=== PATIENT | male | born 1945 | race Caucasian/White ===

== ENCOUNTER → 2017-09-11 08:47 | Outpatient (CLI) | payer MEDICARE, SELFPAY ==
[2017-09-11 10:34] LABS: Hematocrit 37.1 % (40-54); Mean Corp Hgb Conc 32.3 g/gl (32-36); Mean Corpuscular Hgb 29.4 pg (27.0-32.0); Mean Corpuscular Volume 90.9 fL (80-94); Mean Platelet Vol. 12.9 fl (6.2-12.0); Platelet Count 175 K/mm3 (150-450); RBC Distribution Width SD 42.8 fl (35.1-43.9); Red Blood Count 4.08 M/mm3 (4.6-6.2); White Blood Count 5.8 K/mm3 (4.4-11.0)
[2017-09-11 10:36] LABS: Scan Indicated on CBC? Y/N NO
[2017-09-11 10:57] LABS: Anion Gap 9 (5-15); BUN 39 mg/dL (7-18); BUN/Creat Ratio 16.8 RATIO (10-20); Calcium,Total 10.4 mg/dL (8.5-10.1); Chloride 107 mmol/L (98-107); Cholesterol 191 mg/dL (200); Creatinine, Serum 2.32 mg/dL (0.70-1.30); EST Glomerular Filtration Rate 29 mL/min (>60); Est Glom Filt Rate - Afr Amer 36 mL/min (>60); Glucose 94 mg/dL (74-106); High Density Lipoprotein 56 mg/dL; Potassium 4.9 mmol/L (3.5-5.1); Sodium Level 142 mmol/L (136-145); Triglycerides 127 mg/dL; Very Low Density Lipoprotein 25 mg/dL (5-40)
[2017-09-12 09:42] LABS: Vitamin D,25 Hydroxy 83.9 ng/mL (29.95-100.01)
[2017-09-12 09:45] LABS: PTHIN 17.6 pg/mL (18.4-80.1)
== END ==
PROVIDERS: Family Provider Family Medicine; PCP Family Medicine; Visit Provider Family Medicine
DX: E55.9 Vitamin D deficiency, unspecified (principal); N18.2 Chronic kidney disease, stage 2 (mild); I12.9 Hypertensive chronic kidney disease with stage 1 through stage 4 chronic kidney disease, or unspecified chronic kidney disease
CPT/HCPCS: 36415; 80048; 80061; 82306; 83970; 84100; 85027

== ENCOUNTER → 2017-12-22 08:23 | Outpatient (CLI) | payer MEDICARE, SELFPAY ==
[2017-12-22 10:26] LABS: Anion Gap 8 (5-15); BUN 40 mg/dL (7-18); BUN/Creat Ratio 14.6 RATIO (10-20); Calcium,Total 10.3 mg/dL (8.5-10.1); Chloride 105 mmol/L (98-107); Creatinine, Serum 2.74 mg/dL (0.70-1.30); EST Glomerular Filtration Rate 24 mL/min (>60); Est Glom Filt Rate - Afr Amer 29 mL/min (>60); Glucose 94 mg/dL (74-106); Potassium 4.4 mmol/L (3.5-5.1); Sodium Level 139 mmol/L (136-145)
[2017-12-22 10:44] LABS: PTHIN 23.1 pg/mL (18.4-80.1)
== END ==
PROVIDERS: Family Provider Family Medicine; PCP Family Medicine; Visit Provider Family Medicine
DX: N18.2 Chronic kidney disease, stage 2 (mild) (principal)
CPT/HCPCS: 36415; 80048; 83970

== ENCOUNTER → 2018-01-28 10:22 | Outpatient (CLI) | payer MEDICARE, SELFPAY ==
[2018-01-28 13:08] LABS: Protein, Urine (Random) 25.2 mg/dL (<11.9); Protein:Creat Ratio 176 mg/g CRE (0-200)
== END ==
PROVIDERS: Family Provider Family Medicine; PCP Family Medicine; Visit Provider Internal Medicine Nephrology
DX: N18.4 Chronic kidney disease, stage 4 (severe) (principal)
CPT/HCPCS: 82570; 84156

== ENCOUNTER → 2018-01-30 10:36 | Outpatient (CLI) | payer MEDICARE, SELFPAY | PROVIDERS: Family Provider Family Medicine; PCP Family Medicine; Visit Provider Internal Medicine Nephrology | DX: N18.4 Chronic kidney disease, stage 4 (severe) (principal) | CPT/HCPCS: 76770 ==

== ENCOUNTER → 2018-02-23 08:27 | Outpatient (CLI) | payer MEDICARE, SELFPAY ==
[2018-02-23 10:19] LABS: Hematocrit 34.7 % (40-54); Hemoglobin 11.3 g/dl (13.0-16.5); Mean Corp Hgb Conc 32.6 g/gl (32-36); Mean Corpuscular Hgb 29.8 pg (27.0-32.0); Mean Corpuscular Volume 91.6 fL (80-94); Mean Platelet Vol. 13.5 fl (6.2-12.0); Platelet Count 158 K/mm3 (150-450); RBC Distribution Width CV 12.5 % (11.6-14.6); RBC Distribution Width SD 40.3 fl (35.1-43.9); Red Blood Count 3.79 M/mm3 (4.6-6.2)
[2018-02-23 10:24] LABS: Scan Indicated on CBC? Y/N NO
[2018-02-23 10:36] LABS: Albumin, Serum 3.5 g/dL (3.2-5.0); BUN 35 mg/dL (7-18); BUN/Creat Ratio 14.6 RATIO (10-20); Calcium,Total 9.5 mg/dL (8.5-10.1); Chloride 103 mmol/L (98-107); Creatinine, Serum 2.39 mg/dL (0.70-1.30); EST Glomerular Filtration Rate 28 mL/min (>60); Est Glom Filt Rate - Afr Amer 34 mL/min (>60); Glucose 92 mg/dL (74-106); Potassium 3.9 mmol/L (3.5-5.1); Sodium Level 138 mmol/L (136-145)
== END ==
PROVIDERS: Family Provider Family Medicine; PCP Family Medicine; Visit Provider Internal Medicine Nephrology
DX: N18.4 Chronic kidney disease, stage 4 (severe) (principal)
CPT/HCPCS: 36415; 80069; 85027

== ENCOUNTER → 2018-06-23 09:32 | Outpatient (CLI) | payer MEDICARE, SELFPAY ==
[2018-06-23 12:31] LABS: Hematocrit 36.9 % (40-54); Hemoglobin 11.7 g/dl (13.0-16.5); Mean Corp Hgb Conc 31.7 g/gl (32-36); Mean Corpuscular Hgb 28.3 pg (27.0-32.0); Mean Corpuscular Volume 89.1 fL (80-94); Platelet Count 186 K/mm3 (150-450); RBC Distribution Width CV 13.2 % (11.6-14.6); RBC Distribution Width SD 42.7 fl (35.1-43.9); Red Blood Count 4.14 M/mm3 (4.6-6.2); White Blood Count 5.9 K/mm3 (4.4-11.0)
[2018-06-23 12:32] LABS: Scan Indicated on CBC? Y/N NO
[2018-06-23 12:39] LABS: Anion Gap 10 (5-15); BUN 41 mg/dL (7-18); Calcium,Total 10.1 mg/dL (8.5-10.1); Chloride 106 mmol/L (98-107); Cholesterol 172 mg/dL (200); Creatinine, Serum 2.41 mg/dL (0.70-1.30); EST Glomerular Filtration Rate 28 mL/min (>60); Est Glom Filt Rate - Afr Amer 34 mL/min (>60); Glucose 86 mg/dL (74-106); High Density Lipoprotein 61 mg/dL; PSA,Total - Annual Screen 1.38 ng/mL (0.00-4.00); Potassium 3.9 mmol/L (3.5-5.1); Sodium Level 140 mmol/L (136-145); Triglycerides 105 mg/dL; Very Low Density Lipoprotein 21 mg/dL (5-40)
[2018-06-23 12:40] LABS: Vitamin D,25 Hydroxy 73.7 ng/mL (29.95-100.01)
--- OUTSIDE RECORDS SUMMARY | 2018-08-25 10:46 | XMS RPT_ITS ---
:1945 Author Organization OHIP Care Team Providers Name Role Phone Neil Phoenix Attending Unavailable Neil Phoenix Primary Care Unavailable Neil Phoenix Attending Unavailable [facility] Unavailable Neil Phoenix Attending Unavailable Neil Phoenix Primary Care Unavailable Reshma Wong Attending Unavailable Neil Phoenix Primary Care Unavailable Reshma Wong Attending [facility] Unavailable Reshma Wong Attending Unavailable [facility] Unavailable PROBLEMS PROBLEMS DATE TYPE CONDITION / CODE ATTENDING STATUS SOURCE 02/23/2018 Unknown N18.4 - Chronic Reshma Wong Active [place] kidney disease, [facility] stage [facility] (severe[facility] / N18.4(ICD-10) Repository PROCEDURES PROCEDURES No Procedure Records FoundRESULTS RESULTS CBC-COMPLETE BLOOD CNT Collected: 06/23/2018 Status: F Source: [place] NO DIFF 9:33 AM [facility] REPOSITORY TYPE CODE TESTS RESULT OUT OF RANGE REFERENCE UNITS LAB L100.1000 4.4-11.0 K/mm3 Normal WBC 5.9 LAB L100.1200 4.6-6.2 M/mm3 Low RBC 4.14 LAB L100.1300 13.0-16.5 g/dl Low HGB 11.7 LAB L100.1400 40-54 % Low HCT 36.9 LAB L100.1500 80-94 fL Normal MCV 89.1 LAB L100.1600 27.0-32.0 pg Normal MCH 28.3 LAB L100.1700 32-36 g/gl Low MCHC 31.7 LAB L100.1810 11.6-14.6 % Normal RDW CV 13.2 LAB L100.1820 35.1-43.9 fl Normal RDW SD 42.7 LAB L100.1900 150-450 K/mm3 Normal PLT 186 LAB L100.2000 6.2-12.0 fl High MPV 13.0 Performed By: #### L100.0500, L500.2500, L501.9910, L506.1000 #### [facility] [address] [place], [address] BASIC METABOLIC Collected: 06/23/2018 Status: F Source: [place] PROFILE (BMP) 9:33 AM [facility] REPOSITORY TYPE CODE TESTS RESULT OUT OF RANGE REFERENCE UNITS LAB L501.0100 74-106 mg/dL Normal GLU 86 Result Comment: Please note revised GLUCOSE reference range effective 2017. LAB L501.1000 7-18 mg/dL High BUN 41 LAB L501.1100 0.70-1.30 mg/dL High CREAT,SERUM 2.41 Result Comment: The validity of the calculated GFR AND GFRAA in patients over 70 years has not been determined. Clinical correlation is essential. LAB L501.1110 >60 mL/min Low EST GFR 28 Result Comment: Non- GFR Calc LAB L501.1115 >60 mL/min Low EST GFR - AA 34 Result Comment: GFR Calc LAB L501.1300 10-20 RATIO Normal BUN/CRE 17.0 LAB L501.2200 8.5-10.1 mg/dL CA Normal 10.1 LAB L501.5300 136-145 mmol/L NA Normal 140 LAB L501.5600 3.5-5.1 mmol/L K Normal 3.9 LAB L501.5900 98-107 mmol/L CL Normal 106 LAB L501.6100 21.0-32.0 mmol/L Normal CO2 24.0 LAB L501.6200 5-15 Normal GAP 10 Performed By: #### L100.0500, L500.2500, L501.9910, L506.1000 #### [facility] [address] [place], [address] PSA,TOTAL - ANNUAL Collected: 06/23/2018 Status: F Source: [place] SCREEN 9:33 AM [facility] REPOSITORY TYPE CODE TESTS RESULT OUT OF RANGE REFERENCE UNITS LAB L501.9910 0.00-4.00 ng/mL Normal PSA,TOT 1.38 SCREEN Result Comment: This test was performed using the TPSA assay method for the ADMETA chemistry system. Values obtained with different assay methods cannot be used interchangably. When changing PSA assays in the course of monitoring a patient, additional sequential testing should be carried out to confirm baseline values. Performed By: #### L100.0500, L500.2500, L501.9910, L506.1000 #### [facility] [address] [place], [address] VITAMIN D,25 HYDROXY Collected: 06/23/2018 Status: F Source: [place] 9:33 AM [facility] REPOSITORY TYPE CODE TESTS RESULT OUT OF RANGE REFERENCE UNITS LAB L506.1000 29.95-100.01 ng/mL Normal Vitamin D 73.7 25-OH Result Comment: Vitamin D 25(OH) Status Range Deficiency <20 ng/mL (50nmol/L) Insuffciency 20 - 30 ng/mL (50 - 75 nmol/L) Sufficiency 30 - 100 ng/mL (75 - 250 nmol/L) Toxicity >100 ng/mL (>250 nmol/L) Performed By: #### L100.0500, L500.2500, L501.9910, L506.1000 #### [facility] [address] [place], [address] LIPID PROFILE Collected: 06/23/2018 Status: F Source: [place] 9:33 AM [facility] REPOSITORY TYPE CODE TESTS RESULT OUT OF RANGE REFERENCE UNITS LAB L501.4900 200 mg/dL Normal CHOL 172 Result Comment: <200 mg/dL Desirable 200-240 mg/dL Borderline >240 mg/dL High Risk LAB L501.5000 mg/dL Normal TRIG 105 Result Comment: The drugs N-Acetylcysteine and Metamizole may falsely depress this assay. Serum Triglycerides Reference Interval Normal <150 mg/dL Borderline high 150 - 199 mg/dL High 200 - 499 mg/dL Very High > or = 500 mg/dL LAB L501.6400 mg/dL Normal HDL 61 Result Comment: The drugs N-Acetylcysteine and Metamizole may falsely depress this assay. Reference Range HDL <40 mg/dL Low HDL Cholesterol HDL >or= 60 mg/dL High HDL Cholesterol LAB L501.6500 0-130 mg/dL Normal LDL 90 LAB L501.6600 5-40 mg/dL Normal VLDL 21 Performed By: #### L500.4100 #### [facility] [address] [facility] [place], [place], [id number] CBC-COMPLETE BLOOD CNT Collected: 02/23/2018 Status: F Source: [place] NO DIFF 8:28 AM [facility] REPOSITORY TYPE CODE TESTS RESULT OUT OF RANGE REFERENCE UNITS LAB L100.1000 4.4-11.0 K/mm3 Normal WBC 8.0 LAB L100.1200 4.6-6.2 M/mm3 Low RBC 3.79 LAB L100.1300 13.0-16.5 g/dl Low HGB 11.3 LAB L100.1400 40-54 % Low HCT 34.7 LAB L100.1500 80-94 fL Normal MCV 91.6 LAB L100.1600 27.0-32.0 pg Normal MCH 29.8 LAB L100.1700 32-36 g/gl Normal MCHC 32.6 LAB L100.1810 11.6-14.6 % Normal RDW CV 12.5 LAB L100.1820 35.1-43.9 fl Normal RDW SD 40.3 LAB L100.1900 150-450 K/mm3 Normal PLT 158 LAB L100.2000 6.2-12.0 fl High MPV 13.5 Performed By: #### L100.0500 #### [facility] [address] [facility] [place], [place], [id number] RENAL PROFILE Collected: 02/23/2018 Status: F Source: [place] 8:28 AM [facility] REPOSITORY TYPE CODE TESTS RESULT OUT OF RANGE REFERENCE UNITS LAB L501.0100 74-106 mg/dL Normal GLU 92 Result Comment: Please note revised GLUCOSE reference range effective 2017. LAB L501.1000 7-18 mg/dL High BUN 35 LAB L501.1100 0.70-1.30 mg/dL High CREAT,SERUM 2.39 Result Comment: The validity of the calculated GFR AND GFRAA in patients over 70 years has not been determined. Clinical correlation is essential. LAB L501.1110 >60 mL/min Low EST GFR 28 Result Comment: Non- GFR Calc LAB L501.1115 >60 mL/min Low EST GFR - AA 34 Result Comment: GFR Calc LAB L501.1300 10-20 RATIO Normal BUN/CRE 14.6 LAB L501.1800 3.2-5.0 g/dL Normal ALB 3.5 LAB L501.2200 8.5-10.1 mg/dL CA Normal 9.5 LAB L501.2300 2.5-4.9 mg/dL Normal PHOS 3.0 LAB L501.5300 136-145 mmol/L NA Normal 138 LAB L501.5600 3.5-5.1 mmol/L K Normal 3.9 LAB L501.5900 98-107 mmol/L CL Normal 103 LAB L501.6100 21.0-32.0 mmol/L Normal CO2 27.0 Performed By: #### L500.3600 #### [facility] [address] [facility] [place], [address] KIDNEY AND BLADDER Observed: 01/30/2018 Status: F Source: [place] 10:40 AM [facility] REPOSITORY [facility] Imaging Services [address] [place] [address] Kidney and Bladder MR#: [id number] Acct: [id number] Name: LÓPEZ WASHINGTON Rep #: [id number] : 1945 M 72 From: John Paul Person MD PCP: Neil Phoenix MD Status: REG CLI Study: Kidney and Bladder Date of Exam: 01/30/18 Exam# [id number] Ordering Dr: Reshma Wong DO STUDY: RENAL ULTRASOUND - COMPLETE REASON FOR EXAM: Male, 72 years old. Chronic kidney disease, stage IV. TECHNIQUE: Ultrasound evaluation of the kidneys was performed with real-time and static bone-scale imaging. COMPARISON: Bilateral renal ultrasound July 24, 2015. FINDINGS: RIGHT KIDNEY: Normal location of the right kidney, which is normal in size. The right kidney measures 9.3 x 4.6 x 4.8 cm. There is increased cortical echogenicity of the right kidney, which can be associated with long-standing medical renal disease. The renal cortex measures 1.1 cm. An incompletely defined 1.5 x 1.2 x 1.2 cm hypoechoic, exophytic structure with posterior acoustic shadowing is again seen at the anterior mid to lower pole. 7 mm echogenicity consistent with a stone noted at the upper pole. A 5 mm hyperechogenicity with posterior acoustic shadowing projects in the anterior cortex of the midpole. There is no right hydronephrosis. DISTAL RIGHT URETER: There is non-visualization of the distal right ureter. There is no demonstrated right ureterovesical junction calculus. There is a visualized right ureteral jet. LEFT KIDNEY: Normal location of the left kidney, which is normal in size. The left kidney measures 10.2 x 4.6 x 4.1 cm. There is trace cortical echogenicity of the left kidney, which can be associated with long-standing medical renal disease. The renal cortex measures 0.8 cm. Four cortical cysts are identified. An exophytic cyst at the upper pole is 2.25 x 2.1 x 2.75 cm. A second cyst at the anterior upper to mid pole is 1.7 x 2.2 x 1.85 cm. A third, at the lateral lower pole, is 2.5 x 2.0 x 2.1 cm. A fourth hypoechoic subcapsular lesion at the anterolateral midpole is 8 x 10 x 7 mm. 5 mm hyperechogenicity consistent with a nonobstructing stone noted at the lower pole. There is no left hydronephrosis. DISTAL LEFT URETER: There is non-visualization of the distal left ureter. There is no demonstrated left ureterovesical junction calculus. There is a visualized left ureteral jet. BLADDER: The urinary bladder has a volume of 86.1 ml at the time of scanning. There is a normal 3 mm wall thickness of the distended urinary bladder. There is no demonstrated mass within the urinary bladder. There are no demonstrated bladder calculi. US/Kidney and Bladder IMPRESSION: 1. Bilateral nonobstructing renal stones noted. No hydronephrosis. 2. Stable bilateral renal cortical cysts, as described. A few of the cysts on the left are better visualized today. 3. Increased renal cortical echogenicity, which could reflect change of long-standing medical renal disease. 4. The urinary bladder is unremarkable. Electronically Signed: Jorge Person MD at 16:09 EDT , Service support , CC: Reshma Wong DO; Neil Phoenix MD Historiographer: Signed PROTEIN+CREATININE Collected: Status: F Source: [place] RATIO,URINE 01/28/2018 10:23 AM [facility] REPOSITORY TYPE CODE TESTS RESULT OUT OF RANGE REFERENCE UNITS LAB L501.1200 NO RANGE EST. mg/dL Normal UR CREAT 143.00 LAB L501.1930 <11.9 mg/dL High 25.2 PROTEIN,UR.R AN. LAB L501.1940 0-200 mg/g CRE Normal PROT:CRE 176 RATIO Performed By: #### L501.0900 #### [facility] [address] [place], [address] BASIC METABOLIC Collected: 12/22/2017 Status: F Source: [place] PROFILE (BMP) 8:25 AM [facility] REPOSITORY Order Comment: Order Date: 09/18/17 Order Info: 0667-1 - BMP TYPE CODE TESTS RESULT OUT OF RANGE REFERENCE UNITS LAB L501.0100 74-106 mg/dL Normal GLU 94 Result Comment: Please note revised GLUCOSE reference range effective 2017. LAB L501.1000 7-18 mg/dL High BUN 40 LAB L501.1100 0.70-1.30 mg/dL High CREAT,SERUM 2.74 Result Comment: The validity of the calculated GFR AND GFRAA in patients over 70 years has not been determined. Clinical correlation is essential. LAB L501.1110 >60 mL/min Low EST GFR 24 Result Comment: Non- GFR Calc LAB L501.1115 >60 mL/min Low EST GFR - AA 29 Result Comment: GFR Calc LAB L501.1300 10-20 RATIO Normal BUN/CRE 14.6 LAB L501.2200 8.5-10.1 mg/dL High CA 10.3 LAB L501.5300 136-145 mmol/L NA Normal 139 LAB L501.5600 3.5-5.1 mmol/L K Normal 4.4 LAB L501.5900 98-107 mmol/L CL Normal 105 LAB L501.6100 21.0-32.0 mmol/L Normal CO2 26.0 LAB L501.6200 5-15 Normal GAP 8 Performed By: #### L500.2500, L509.1000 #### [facility] [address] [facility] [place], [place], [address] PTHIN Collected: 12/22/2017 Status: F Source: [place] 8:25 AM [facility] REPOSITORY Order Comment: Order Date: 09/18/17 Order Info: 0565-1 - PTHIN TYPE CODE TESTS RESULT OUT OF RANGE REFERENCE UNITS LAB L509.1000 18.4-80.1 pg/mL Normal PTHIN 23.1 Performed By: #### L500.2500, L509.1000 #### [facility] [address] [facility] [place], [address] CBC-COMPLETE BLOOD CNT Collected: 09/11/2017 Status: F Source: [place] NO DIFF 8:48 AM [facility] REPOSITORY Order Comment: Order Date: 06/19/17 Order Info: 66977-8 - CBC TYPE CODE TESTS RESULT OUT OF RANGE REFERENCE UNITS LAB L100.1000 4.4-11.0 K/mm3 Normal WBC 5.8 LAB L100.1200 4.6-6.2 M/mm3 Low RBC 4.08 LAB L100.1300 13.0-16.5 g/dl Low HGB 12.0 LAB L100.1400 40-54 % Low HCT 37.1 LAB L100.1500 80-94 fL Normal MCV 90.9 LAB L100.1600 27.0-32.0 pg Normal MCH 29.4 LAB L100.1700 32-36 g/gl Normal MCHC 32.3 LAB L100.1810 11.6-14.6 % Normal RDW CV 13.0 LAB L100.1820 35.1-43.9 fl Normal RDW SD 42.8 LAB L100.1900 150-450 K/mm3 Normal PLT 175 LAB L100.2000 6.2-12.0 fl High MPV 12.9 Performed By: #### L100.0500, L500.2500, L500.4100, L501.2300, L506.1000, L509.1000 #### [facility] [address] [place], [address] BASIC METABOLIC Collected: 09/11/2017 Status: F Source: [place] PROFILE ([facility] 8:48 AM [facility] REPOSITORY Order Comment: Order Date: 06/19/17 Order Info: 0667-1 - BMP Order Info: [id number] - LIPID Order Info: 2777-1 - PHOS TYPE CODE TESTS RESULT OUT OF RANGE REFERENCE UNITS LAB L501.0100 74-106 mg/dL Normal GLU 94 Result Comment: Please note revised GLUCOSE reference range effective 2017. LAB L501.1000 7-18 mg/dL High BUN 39 LAB L501.1100 0.70-1.30 mg/dL High CREAT,SERUM 2.32 Result Comment: The validity of the calculated GFR AND GFRAA in patients over 70 years has not been determined. Clinical correlation is essential. LAB L501.1110 >60 mL/min Low EST GFR 29 Result Comment: Non- GFR Calc LAB L501.1115 >60 mL/min Low EST GFR - AA 36 Result Comment: GFR Calc LAB L501.1300 10-20 RATIO Normal BUN/CRE 16.8 LAB L501.2200 8.5-10.1 mg/dL High CA 10.4 LAB L501.5300 136-145 mmol/L NA Normal 142 LAB L501.5600 3.5-5.1 mmol/L K Normal 4.9 LAB L501.5900 98-107 mmol/L CL Normal 107 LAB L501.6100 21.0-32.0 mmol/L Normal CO2 26.0 LAB L501.6200 5-15 Normal GAP 9 Performed By: #### L100.0500, L500.2500, L500.4100, L501.2300, L506.1000, L509.1000 #### [facility] [address] [place], [place], [address] LIPID PROFILE Collected: 09/11/2017 Status: F Source: [place] 8:48 AM [facility] REPOSITORY Order Comment: Order Date: 06/19/17 Order Info: 0667-1 - BMP Order Info: [id number] - LIPID Order Info: 2777-1 - PHOS TYPE CODE TESTS RESULT OUT OF RANGE REFERENCE UNITS LAB L501.4900 200 mg/dL Normal CHOL 191 Result Comment: <200 mg/dL Desirable 200-240 mg/dL Borderline >240 mg/dL High Risk LAB L501.5000 mg/dL Normal TRIG 127 Result Comment: The drugs N-Acetylcysteine and Metamizole may falsely depress this assay. Serum Triglycerides Reference Interval Normal <150 mg/dL Borderline high 150 - 199 mg/dL High 200 - 499 mg/dL Very High > or = 500 mg/dL LAB L501.6400 mg/dL Normal HDL 56 Result Comment: The drugs N-Acetylcysteine and Metamizole may falsely depress this assay. Reference Range HDL <40 mg/dL Low HDL Cholesterol HDL >or= 60 mg/dL High HDL Cholesterol LAB L501.6500 0-130 mg/dL Normal LDL 110 LAB L501.6600 5-40 mg/dL Normal VLDL 25 Performed By: #### L100.0500, L500.2500, L500.4100, L501.2300, L506.1000, L509.1000 #### [facility] [address] [place], [place], [address] PHOSPHORUS Collected: 09/11/2017 Status: F Source: [place] 8:48 AM [facility] REPOSITORY Order Comment: Order Date: 06/19/17 Order Info: 0667-1 - BMP Order Info: [id number] - LIPID Order Info: 2777-1 - PHOS TYPE CODE TESTS RESULT OUT OF RANGE REFERENCE UNITS LAB L501.2300 2.5-4.9 mg/dL Normal PHOS 4.0 Performed By: #### L100.0500, L500.2500, L500.4100, L501.2300, L506.1000, L509.1000 #### [facility] [address] [place], [place], [address] VITAMIN D,25 HYDROXY Collected: 09/11/2017 Status: F Source: [place] 8:48 AM [facility] REPOSITORY Order Comment: Order Date: 06/19/17 Order Info: 19362-7 - VITD25 TYPE CODE TESTS RESULT OUT OF RANGE REFERENCE UNITS LAB L506.1000 29.95-100.01 ng/mL Normal Vitamin D 83.9 25-OH Result Comment: Vitamin D 25(OH) Status Range Deficiency <20 ng/mL (50nmol/L) Insuffciency 20 - 30 ng/mL (50 - 75 nmol/L) Sufficiency 30 - 100 ng/mL (75 - 250 nmol/L) Toxicity >100 ng/mL (>250 nmol/L) Performed By: #### L100.0500, L500.2500, L500.4100, L501.2300, L506.1000, L509.1000 #### [facility] [address] [place], [place], [address] PTHIN Collected: 09/11/2017 Status: F Source: [place] 8:48 AM [facility] REPOSITORY Order Comment: Order Date: 06/19/17 Order Info: 0565-1 - PTHIN TYPE CODE TESTS RESULT OUT OF RANGE REFERENCE UNITS LAB L509.1000 18.4-80.1 pg/mL Low PTHIN 17.6 Result Comment: Please Note: PTH INTACT METHOD AND REFERENCE RANGE CHANGE Effective 05/21/2017. Performed By: #### L100.0500, L500.2500, L500.4100, L501.2300, L506.1000, L509.1000 #### [facility] [address] [place], [place], [address] ALLERGIES ALLERGIES No Allergies Records FoundENCOUNTERS ENCOUNTERS ADMIT/DISCHARGE ACCOUNT ADMITTING ENCOUNTER LOCATION SOURCE NUMBER CLASS 06/23/2018 [id number] Ambulatory [place] 1 [facility] ing:MFPLAB Repository 02/23/2018 [id number] Ambulatory [place] 7 [facility] ing:LAB.FUTUR Repository E 01/30/2018 [id number] Ambulatory [place] 9 [facility] ing:US Repository 01/28/2018 [id number] Ambulatory [place] 9 [facility] ing:LABSPEC Repository 12/22/2017 [id number] Amb[place] 1 [facility] ing:MFPLAB Repository 09/11/2017 [id number] Amb[place] 9 [facility] ing:MFPLAB Repository PAYERS PAYERS ENCOUNTER GUARANTOR PAYER SUBSCRIBER SOURCE 06/23/2018 López Estrada [id number] Insurance:[place] BennettDOB: [facility] [id number] Repository [address]Ytm: 330) Number: [phone] () [id number] Date: [address] [address]OJ: 06/23/2018 Secondary NOT GIVENUNK [place] Insurance:SELF PAY [facility] Number: Effective Repository Date:2018-06-23 02/23/2018 López Estrada [id number] Insurance:[place] BennettDOB: [facility] [id number] [address] Repository [address]Tvm: 330) Number: [phone] () [id number] Date: [address] [address]SZ: 02/23/2018 Secondary NOT GIVENUNK [place] Insurance:SELF PAY [facility] Number: Effective Repository Date:2018-01-29 01/30/2018 López Blissy J [place] [id number] Insurance:[place] BennettDOB: [facility] [id number] Repository [address]Hng: (330) Number: [phone] () [id number] Date: [address] [address]PM: 01/30/2018 Secondary NOT GIVENUNK [place] Insurance:SELF PAY [facility] Number: Effective Repository Date:2018-01-28 01/28/2018 López Brannon Primary López Estrada [id number] Insurance:[place] BennettDOB: [facility] [id number] Repository [address]Bgl: (330) Number: [phone] () [id number] Date: [address] [address]JW: 01/28/2018 Secondary NOT GIVENUNK [place] Insurance:SELF PAY [facility] Number: Effective Repository Date:2018-01-28 12/22/2017 López Brannon Primary López Estrada [id number] Insurance:[place] BennettDOB: [facility] [id number] MED[place] Repository [address]Hbb: (330) Number: [phone] () [id number] Date: [address] [address]GR: 12/22/2017 Secondary NOT GIVENUNK [place] Insurance:SELF PAY [facility] Number: Effective Repository Date:2017-12-22 09/11/2017 López Brannon Primary López Estrada [id number] Insurance:[place] BennettDOB: [facility] [id number] Repository [address]Knh: 330) Number: [phone] () [id number] Date: FLORINDA STEWART [address], [place] [address]JA: 09/11/2017 Secondary NOT GIVENUNK [place] Insurance:SELF PAY [facility] Number: Effective Repository Date:2017-09-11
== END ==
PROVIDERS: Family Provider Family Medicine; PCP Family Medicine; Visit Provider Family Medicine
DX: E55.9 Vitamin D deficiency, unspecified (principal); N40.0 Benign prostatic hyperplasia without lower urinary tract symptoms; N18.2 Chronic kidney disease, stage 2 (mild); I12.9 Hypertensive chronic kidney disease with stage 1 through stage 4 chronic kidney disease, or unspecified chronic kidney disease; Z12.5 Encounter for screening for malignant neoplasm of prostate
CPT/HCPCS: 36415; 80048; 80061; 82306; 84153; 85027; G0103

== ENCOUNTER → 2018-07-06 09:41 | Outpatient (CLI) | payer MEDICARE, SELFPAY ==
[2018-07-06 12:49] LABS: Albumin, Serum 3.8 g/dL (3.2-5.0); BUN 37 mg/dL (7-18); BUN/Creat Ratio 15.2 RATIO (10-20); Calcium,Total 10.1 mg/dL (8.5-10.1); Chloride 106 mmol/L (98-107); Creatinine, Serum 2.43 mg/dL (0.70-1.30); EST Glomerular Filtration Rate 28 mL/min (>60); Est Glom Filt Rate - Afr Amer 34 mL/min (>60); Glucose 88 mg/dL (74-106); Potassium 4.1 mmol/L (3.5-5.1); Sodium Level 138 mmol/L (136-145)
== END ==
PROVIDERS: Family Provider Family Medicine; PCP Family Medicine; Visit Provider Internal Medicine Nephrology
DX: I12.9 Hypertensive chronic kidney disease with stage 1 through stage 4 chronic kidney disease, or unspecified chronic kidney disease (principal); N18.4 Chronic kidney disease, stage 4 (severe)
CPT/HCPCS: 36415; 80069

== ENCOUNTER → 2018-07-14 13:29 | Outpatient (CLI) | payer MEDICARE, SELFPAY ==
[2018-07-14 14:10] LABS: Protein, Urine (Random) 18.5 mg/dL (<11.9); Protein:Creat Ratio 301 mg/g CRE (0-200)
== END ==
PROVIDERS: Family Provider Family Medicine; PCP Family Medicine; Visit Provider Internal Medicine Nephrology
DX: I12.9 Hypertensive chronic kidney disease with stage 1 through stage 4 chronic kidney disease, or unspecified chronic kidney disease (principal); N18.4 Chronic kidney disease, stage 4 (severe)
CPT/HCPCS: 82570; 84156

== ENCOUNTER → 2018-09-22 08:26 | Outpatient (CLI) | payer MEDICARE, SELFPAY ==
[2018-09-22 10:32] LABS: Anion Gap 10 (5-15); BUN 35 mg/dL (7-18); BUN/Creat Ratio 14.2 RATIO (10-20); Calcium,Total 10.1 mg/dL (8.5-10.1); Chloride 104 mmol/L (98-107); Creatinine, Serum 2.46 mg/dL (0.70-1.30); EST Glomerular Filtration Rate 27 mL/min (>60); Est Glom Filt Rate - Afr Amer 33 mL/min (>60); Glucose 97 mg/dL (74-106); Potassium 4.1 mmol/L (3.5-5.1); Sodium Level 142 mmol/L (136-145)
== END ==
PROVIDERS: Family Provider Family Medicine; PCP Family Medicine; Referring Provider Family Medicine; Visit Provider Family Medicine
DX: I10 Essential (primary) hypertension (principal)
CPT/HCPCS: 36415; 80048

== ENCOUNTER → 2019-01-11 08:55 | Outpatient (CLI) | payer MEDICARE, SELFPAY ==
[2019-01-11 09:58] LABS: Hematocrit 36.5 % (40-54); Hemoglobin 11.9 g/dL (13.0-16.5); Mean Corp Hgb Conc 32.6 g/dL (32-36); Mean Corpuscular Hgb 29.3 pg (27.0-32.0); Mean Corpuscular Volume 89.9 fL (80-94); Mean Platelet Vol. 13.1 fl (6.2-12.0); Platelet Count 163 K/mm3 (150-450); RBC Distribution Width CV 12.7 % (11.6-14.6); RBC Distribution Width SD 41.9 fl (35.1-43.9); Red Blood Count 4.06 M/mm3 (4.6-6.2); White Blood Count 6.2 K/mm3 (4.4-11.0)
[2019-01-11 10:35] LABS: PTHIN 29.1 pg/mL (18.4-80.1)
[2019-01-11 10:39] LABS: Albumin, Serum 3.6 g/dL (3.2-5.0); BUN 36 mg/dL (7-18); BUN/Creat Ratio 15.5 RATIO (10-20); Calcium,Total 9.7 mg/dL (8.5-10.1); Chloride 106 mmol/L (98-107); Creatinine, Serum 2.33 mg/dL (0.70-1.30); EST Glomerular Filtration Rate 29 mL/min (>60); Est Glom Filt Rate - Afr Amer 35 mL/min (>60); Glucose 102 mg/dL (74-106); Phosphorus 3.7 mg/dL (2.5-4.9); Potassium 4.1 mmol/L (3.5-5.1); Sodium Level 140 mmol/L (136-145)
== END ==
PROVIDERS: Visit Provider Internal Medicine Nephrology
DX: N18.4 Chronic kidney disease, stage 4 (severe) (principal)
CPT/HCPCS: 36415; 80069; 83970; 85027

== ENCOUNTER → 2019-01-18 09:16 | Outpatient (CLI) | payer MEDICARE, SELFPAY ==
[2019-01-18 11:23] LABS: Anion Gap 7 (5-15); BUN 27 mg/dL (7-18); BUN/Creat Ratio 11.5 RATIO (10-20); Calcium,Total 9.8 mg/dL (8.5-10.1); Chloride 108 mmol/L (98-107); Creatinine, Serum 2.34 mg/dL (0.70-1.30); EST Glomerular Filtration Rate 29 mL/min (>60); Est Glom Filt Rate - Afr Amer 35 mL/min (>60); Glucose 93 mg/dL (74-106); Sodium Level 140 mmol/L (136-145)
[2019-01-18 11:29] LABS: Vitamin D,25 Hydroxy 63.2 ng/mL (29.95-100.01)
[2019-01-18 11:30] LABS: PTHIN 23.8 pg/mL (18.4-80.1)
== END ==
PROVIDERS: Family Provider Family Medicine; PCP Family Medicine; Referring Provider Family Medicine; Visit Provider Family Medicine
DX: N18.2 Chronic kidney disease, stage 2 (mild) (principal); E55.9 Vitamin D deficiency, unspecified
CPT/HCPCS: 36415; 80048; 82306; 83970

== ENCOUNTER → 2019-05-24 09:34 | Outpatient (CLI) | payer MEDICARE, SELFPAY ==
[2019-05-24 13:26] LABS: Anion Gap 6 (5-15); BUN 34 mg/dL (7-18); BUN/Creat Ratio 15.2 RATIO (10-20); Calcium,Total 9.9 mg/dL (8.5-10.1); Chloride 108 mmol/L (98-107); Creatinine, Serum 2.24 mg/dL (0.70-1.30); EST Glomerular Filtration Rate 31 mL/min (>60); Est Glom Filt Rate - Afr Amer 37 mL/min (>60); Glucose 100 mg/dL (74-106); Potassium 4.3 mmol/L (3.5-5.1); Sodium Level 141 mmol/L (136-145)
== END ==
PROVIDERS: Family Provider Family Medicine; PCP Family Medicine; Referring Provider Family Medicine; Visit Provider Family Medicine
DX: N18.2 Chronic kidney disease, stage 2 (mild) (principal)
CPT/HCPCS: 36415; 80048

== ENCOUNTER → 2019-07-19 08:48 | Outpatient (CLI) | payer MEDICARE, SELFPAY ==
[2019-07-19 10:19] LABS: Hematocrit 32.3 % (40-54); Hemoglobin 9.6 g/dL (13.0-16.5); Mean Corp Hgb Conc 29.7 g/dL (32-36); Mean Corpuscular Hgb 25.7 pg (27.0-32.0); Mean Corpuscular Volume 86.4 fL (80-94); Mean Platelet Vol. 12.9 fl (6.2-12.0); Platelet Count 183 K/mm3 (150-450); RBC Distribution Width CV 13.3 % (11.6-14.6); RBC Distribution Width SD 41.7 fl (35.1-43.9); Red Blood Count 3.74 M/mm3 (4.6-6.2); White Blood Count 5.1 K/mm3 (4.4-11.0)
[2019-07-19 10:25] LABS: Albumin, Serum 3.5 g/dL (3.2-5.0); BUN 32 mg/dL (7-18); BUN/Creat Ratio 13.9 RATIO (10-20); Calcium,Total 9.4 mg/dL (8.5-10.1); Chloride 107 mmol/L (98-107); Creatinine, Serum 2.31 mg/dL (0.70-1.30); EST Glomerular Filtration Rate 29 mL/min (>60); Est Glom Filt Rate - Afr Amer 36 mL/min (>60); Glucose 95 mg/dL (74-106); Phosphorus 3.6 mg/dL (2.5-4.9); Potassium 3.8 mmol/L (3.5-5.1); Sodium Level 139 mmol/L (136-145)
[2019-07-19 10:42] LABS: Protein, Urine (Random) 27.3 mg/dL (<11.9); Protein:Creat Ratio 354 mg/g CRE (0-200)
== END ==
PROVIDERS: PCP Family Medicine; Referring Provider Family Medicine; Visit Provider Internal Medicine Nephrology
DX: N18.4 Chronic kidney disease, stage 4 (severe) (principal)
CPT/HCPCS: 36415; 80069; 82570; 84156; 85027

== ENCOUNTER → 2019-10-06 09:27 | Outpatient (CLI) | payer MEDICARE, SELFPAY ==
[2019-10-06 12:23] LABS: Anion Gap 8 (5-15); BUN 38 mg/dL (7-18); BUN/Creat Ratio 15.9 RATIO (10-20); Calcium,Total 9.5 mg/dL (8.5-10.1); Chloride 103 mmol/L (98-107); Cholesterol 175 mg/dL (200); Creatinine, Serum 2.39 mg/dL (0.70-1.30); EST Glomerular Filtration Rate 28 mL/min (>60); Est Glom Filt Rate - Afr Amer 34 mL/min (>60); Glucose 89 mg/dL (74-106); High Density Lipoprotein 60 mg/dL; Potassium 3.7 mmol/L (3.5-5.1); Sodium Level 136 mmol/L (136-145); Triglycerides 104 mg/dL; Very Low Density Lipoprotein 21 mg/dL (5-40)
== END ==
PROVIDERS: PCP Family Medicine; Referring Provider Family Medicine; Visit Provider Family Medicine
DX: I10 Essential (primary) hypertension (principal)
CPT/HCPCS: 36415; 80048; 80061

== ENCOUNTER → 2019-10-18 12:54 | Outpatient (CLI) | payer MEDICARE, SELFPAY ==
--- NOTE | 2019-10-18 12:59 | ECHOD_ITS ---
Reason For Study: DYSPNEA Procedure This was a 2D Doppler, Color Flow transthoracic echocardiogram. Exam performed in department. Left Ventricle Normal LV size. Left ventricular systolic function is normal. The estimated ejection fraction is 60 %. No regional wall motion abnormalities noted. Right Ventricle Normal RV size. Normal systolic function. Atria Normal left atrium. Normal right atrium. Mitral Valve Normal mitral valve. Tricuspid Valve Normal tricuspid valve. Mild (1+) tricuspid valve insufficiency. Pulmonary artery systolic pressure is 30 mmHg. Aortic Valve Trisinus/trileaflet aortic valve. Great Vessels Normal aortic root. Pericardium/Pleural No pericardial effusion. MMode/2D Measurements & Calculations LVIDd: 4.6 cm IVSd: 1.2 cm Ao root diam: 3.2 cm LVIDs: 2.8 cm LVPWd: 1.0 cm RVDd: 2.8 cm FS: 38.6 % LAV(MOD-bp): 57.9 ml LA A4 area: 19.1 cm2 LA dimension(2D): 3.3 cm LAV(MOD-bp) Indexed: 31.8 ml/m2 LAV(MOD-sp2): 54.4 ml LAV(MOD-sp4): 57.5 ml RA A4 area: 12.7 cm2 Time Measurements MV dec time: 0.23 sec Doppler Measurements & Calculations MV E max nicolas: 67.8 cm/sec Lat Peak E' Nicolas: 8.7 cm/sec Med Peak E' Nicolas: 6.5 cm/sec MV A max nicolas: 83.1 cm/sec E/E' lat: 7.8 E/E' med: 10.5 MV E/A: 0.82 Ao V2 max: 129.3 cm/sec LV V1 max: 92.0 cm/sec PA V2 max: 90.8 cm/sec Ao max P.7 mmHg LV V1 max P.4 mmHg Ao V2 mean: 101.1 cm/sec Ao mean P.4 mmHg Ao V2 VTI: 26.7 cm TR max nicolas: 250.2 cm/sec TR max P.1 mmHg Interpretation Summary Normal LV size. Left ventricular systolic function is normal. The estimated ejection fraction is 60 %. Mild (1+) tricuspid valve insufficiency. Ordering Physician: Oswaldo Phoenix Referring Physician: Oswaldo Phoenix Performed By: Sofie Aguilar RDCS, RVT
== END ==
PROVIDERS: PCP Family Medicine; Referring Provider Family Medicine; Visit Provider Family Medicine
DX: R06.00 Dyspnea, unspecified (principal)
CPT/HCPCS: 93306

== ENCOUNTER → 2019-11-08 09:55 | Outpatient (CLI) | payer MEDICARE, SELFPAY ==
--- NOTE | 2019-11-08 09:58 | RAD_ITS ---
STUDY: X-RAY CHEST REASON FOR EXAM: Male, 74 years old. Dyspnea TECHNIQUE: PA and lateral views of the chest. COMPARISON: None. FINDINGS: There is elevation of the right hemidiaphragm. There is no demonstrated pleural abnormality. Normal size heart. Normal mediastinum and gerri. Normal visualized pulmonary arteries. There is atherosclerotic calcification of the aortic arch with tortuosity. There are diffuse degenerative changes of the visualized thoracic spine. Normal visualized ribs, clavicles, and shoulders. There is no demonstrated abnormality of the visualized soft tissue structures of the upper abdomen. RAD/Chest PA and Lateral IMPRESSION: Elevation of the right hemidiaphragm. The lungs are clear. Electronically Signed: Jack Gresham, at 10:07 EDT , Service support ,
== END ==
PROVIDERS: PCP Family Medicine; Referring Provider Family Medicine; Visit Provider Family Medicine
DX: R06.00 Dyspnea, unspecified (principal)
CPT/HCPCS: 71046

== ENCOUNTER → 2020-01-27 11:01 | Outpatient (CLI) | payer MEDICARE, SELFPAY ==
[2020-01-27 12:26] LABS: Absolute Lymphocyte Count 1.08 X10^3/uL (0.83-4.51); Absolute Neutrophil Count 3.6 X10^3/uL (2.0-7.7); Basophil# 0.04 X10^3/uL; Basophil% 0.7 % (0-1); Eosinophil# 0.12 X10^3/uL; Eosinophils% 2.1 % (0-5); Hematocrit 28.4 % (40-54); Hemoglobin 8.4 g/dL (13.0-16.5); Lymphocyte # 1.08 X10^3/ul (4.0); Mean Corp Hgb Conc 29.6 g/dL (32-36); Mean Corpuscular Hgb 24.8 pg (27.0-32.0); Mean Corpuscular Volume 83.8 fL (80-94); Mean Platelet Vol. 12.7 fl (6.2-12.0); Monocyte# 0.84 X10^3/uL; Monocyte% 14.8 % (0-10); NRBC Flagged by Analyzer 0 % (0-5); Neutrophil % 63.2 % (47-70); Platelet Count 220 K/mm3 (150-450); RBC Distribution Width CV 15.2 % (11.6-14.6); RBC Distribution Width SD 46.1 fl (35.1-43.9); Red Blood Count 3.39 M/mm3 (4.6-6.2); White Blood Count 5.7 K/mm3 (4.4-11.0)
[2020-01-27 13:10] LABS: Anion Gap 8 (5-15); BUN 35 mg/dL (7-18); BUN/Creat Ratio 13.9 RATIO (10-20); Calcium,Total 9.2 mg/dL (8.5-10.1); Chloride 105 mmol/L (98-107); Creatinine, Serum 2.51 mg/dL (0.70-1.30); EST Glomerular Filtration Rate 27 mL/min (>60); Est Glom Filt Rate - Afr Amer 32 mL/min (>60); Glucose 88 mg/dL (74-106); Iron 47 ug/dL (65-175); Potassium 3.9 mmol/L (3.5-5.1); Sodium Level 137 mmol/L (136-145)
[2020-01-27 13:12] LABS: PTHIN 57.1 pg/mL (18.4-80.1)
[2020-01-27 13:15] LABS: Vitamin D,25 Hydroxy 77.7 ng/mL
== END ==
PROVIDERS: PCP Family Medicine; Referring Provider Family Medicine; Visit Provider Family Medicine
DX: I10 Essential (primary) hypertension (principal); E55.9 Vitamin D deficiency, unspecified
CPT/HCPCS: 36415; 80048; 82306; 83540; 83970; 85025

== ENCOUNTER → 2020-04-17 09:13 | Outpatient (CLI) | payer MEDICARE, SELFPAY | LOC: MFPLAB 09:14 → LAB.FUTURE 09:17 | PROVIDERS: PCP Family Medicine; Visit Provider Family Medicine | DX: Z00.00 Encounter for general adult medical examination without abnormal findings (principal) ==

== ENCOUNTER → 2020-04-24 10:14 | Outpatient (CLI) | payer MEDICARE, SELFPAY ==
[2020-04-24 13:01] LABS: Platelet Count 204 K/mm3 (150-450); RET-HE 30.7 pg (30-35); Reticulocyte Count 1.16 % (0.5-1.5)
[2020-04-24 13:22] LABS: Anion Gap 7 (5-15); BUN 36 mg/dL (7-18); BUN/Creat Ratio 14.9 RATIO (10-20); Calcium,Total 9.8 mg/dL (8.5-10.1); Chloride 108 mmol/L (98-107); Cholesterol 182 mg/dL (200); Creatinine, Serum 2.42 mg/dL (0.70-1.30); EST Glomerular Filtration Rate 28 mL/min (>60); Est Glom Filt Rate - Afr Amer 34 mL/min (>60); Ferritin 14 ng/mL (26-388); Glucose 94 mg/dL (74-106); High Density Lipoprotein 58 mg/dL; Iron 32 ug/dL (65-175); Potassium 4.2 mmol/L (3.5-5.1); Sodium Level 140 mmol/L (136-145); Triglycerides 70 mg/dL; Very Low Density Lipoprotein 14 mg/dL (5-40)
== END ==
PROVIDERS: PCP Family Medicine; Visit Provider Family Medicine
DX: E55.9 Vitamin D deficiency, unspecified (principal); N18.2 Chronic kidney disease, stage 2 (mild); I12.9 Hypertensive chronic kidney disease with stage 1 through stage 4 chronic kidney disease, or unspecified chronic kidney disease; E78.00 Pure hypercholesterolemia, unspecified
CPT/HCPCS: 36415; 80048; 80061; 82306; 82728; 83540; 85045

== ENCOUNTER → 2020-07-24 10:01 | Outpatient (CLI) | payer MEDICARE, SELFPAY ==
[2020-07-24 12:46] LABS: Hematocrit 33.6 % (40-54); Hemoglobin 10.4 g/dL (13.0-16.5); Mean Corpuscular Hgb 27.7 pg (27.0-32.0); Mean Corpuscular Volume 89.4 fL (80-94); Mean Platelet Vol. 12.9 fl (6.2-12.0); Platelet Count 217 K/mm3 (150-450); RBC Distribution Width CV 12.9 % (11.6-14.6); RBC Distribution Width SD 42.4 fl (35.1-43.9); Red Blood Count 3.76 M/mm3 (4.6-6.2); White Blood Count 7.6 K/mm3 (4.4-11.0)
[2020-07-24 13:14] LABS: Vitamin B12 367 pg/mL (211-911); Vitamin D,25 Hydroxy 70.7 ng/mL
[2020-07-24 13:32] LABS: Anion Gap 8 (5-15); BUN 33 mg/dL (7-18); BUN/Creat Ratio 14.7 RATIO (10-20); Calcium,Total 9.5 mg/dL (8.5-10.1); Chloride 105 mmol/L (98-107); Creatinine, Serum 2.24 mg/dL (0.70-1.30); EST Glomerular Filtration Rate 30 mL/min (>60); Est Glom Filt Rate - Afr Amer 37 mL/min (>60); Ferritin 16 ng/mL (26-388); Glucose 96 mg/dL (74-106); Iron 173 ug/dL (65-175); Potassium 4.2 mmol/L (3.5-5.1); Sodium Level 138 mmol/L (136-145); Thyroid Stim Hormone (TSH) 3.01 uIU/mL (0.358-3.74); Uric Acid 5.7 mg/dL (3.5-7.2)
== END ==
PROVIDERS: PCP Family Medicine; Referring Provider Family Medicine; Visit Provider Family Medicine
DX: E55.9 Vitamin D deficiency, unspecified (principal); M25.532 Pain in left wrist; N18.2 Chronic kidney disease, stage 2 (mild); R53.83 Other fatigue
CPT/HCPCS: 36415; 80048; 82306; 82607; 82728; 83540; 84443; 84550; 85027

== ENCOUNTER → 2020-10-17 11:14 | Outpatient (CLI) | payer MEDICARE, SELFPAY ==
[2020-10-17 13:29] LABS: ALB/GLOB Ratio 0.8 RATIO (0.9-2.4); AST(SGOT) 15 U/L (15-37); Alanine Aminotransfer ALT/SGPT 15 U/L (16-61); Albumin, Serum 3.6 g/dL (3.2-5.0); Alkaline Phosphatase 27 U/L (45-117); Anion Gap 9 (5-15); BUN 33 mg/dL (7-18); BUN/Creat Ratio 12.1 RATIO (10-20); Calcium,Total 9.9 mg/dL (8.5-10.1); Chloride 104 mmol/L (98-107); Cholesterol 167 mg/dL (200); Creatinine, Serum 2.73 mg/dL (0.70-1.30); EST Glomerular Filtration Rate 24 mL/min (>60); Est Glom Filt Rate - Afr Amer 29 mL/min (>60); Globulin 4.3 g/dL (2.2-4.2); Glucose 85 mg/dL (74-106); High Density Lipoprotein 57 mg/dL; Potassium 4.2 mmol/L (3.5-5.1); Protein, Total 7.9 g/dL (6.4-8.2); Sodium Level 138 mmol/L (136-145); Triglycerides 93 mg/dL; Very Low Density Lipoprotein 19 mg/dL (5-40)
== END ==
PROVIDERS: PCP Family Medicine; Referring Provider Family Medicine; Visit Provider Family Medicine
DX: E78.00 Pure hypercholesterolemia, unspecified (principal)
CPT/HCPCS: 36415; 80053; 80061

== ENCOUNTER → 2021-02-01 10:20 | Outpatient (CLI) | payer MEDICARE, SELFPAY ==
[2021-02-01 12:11] LABS: Hematocrit 33.9 % (40-54); Hemoglobin 10.7 g/dL (13.0-16.5); Mean Corp Hgb Conc 31.6 g/dL (32-36); Mean Corpuscular Hgb 27.7 pg (27.0-32.0); Mean Corpuscular Volume 87.8 fL (80-94); Mean Platelet Vol. 12.8 fl (6.2-12.0); Platelet Count 217 K/mm3 (150-450); RBC Distribution Width CV 13.7 % (11.6-14.6); RBC Distribution Width SD 44.1 fl (35.1-43.9); Red Blood Count 3.86 M/mm3 (4.6-6.2); White Blood Count 6.8 K/mm3 (4.4-11.0)
[2021-02-01 12:24] LABS: Anion Gap 8 (5-15); BUN 35 mg/dL (7-18); BUN/Creat Ratio 13.8 RATIO (10-20); Calcium,Total 9.7 mg/dL (8.5-10.1); Chloride 104 mmol/L (98-107); Creatinine, Serum 2.54 mg/dL (0.70-1.30); EST Glomerular Filtration Rate 26 mL/min (>60); Est Glom Filt Rate - Afr Amer 32 mL/min (>60); Glucose 95 mg/dL (74-106); Iron 107 ug/dL (65-175); Phosphorus 4.1 mg/dL (2.5-4.9); Potassium 4.2 mmol/L (3.5-5.1); Sodium Level 137 mmol/L (136-145)
== END ==
PROVIDERS: PCP Family Medicine; Referring Provider Family Medicine; Visit Provider Family Medicine
DX: N18.30 Chronic kidney disease, stage 3 unspecified (principal)
CPT/HCPCS: 36415; 80048; 83540; 83970; 84100; 85027

== ENCOUNTER 2021-06-05 10:55 | Outpatient (CLI) | payer MEDICARE, SELFPAY ==
[2021-06-05 13:04] LABS: Anion Gap 11 (5-15); BUN 29 mg/dL (7-18); BUN/Creat Ratio 12.7 RATIO (10-20); Calcium,Total 9.9 mg/dL (8.5-10.1); Chloride 104 mmol/L (98-107); Creatinine, Serum 2.28 mg/dL (0.70-1.30); EST Glomerular Filtration Rate 30 mL/min (>60); Est Glom Filt Rate - Afr Amer 36 mL/min (>60); Glucose 94 mg/dL (74-106); Sodium Level 138 mmol/L (136-145)
== END 2021-06-05 23:59 | disposition short-term general hospital (02) ==
LOC: MFPLAB 10:56
PROVIDERS: PCP Family Medicine; Referring Provider Family Medicine; Visit Provider Family Medicine
DX: N18.30 Chronic kidney disease, stage 3 unspecified (principal)
CPT/HCPCS: 36415; 80048

== ENCOUNTER 2021-09-04 10:58 | Outpatient (CLI) | payer MEDICARE, SELFPAY ==
--- NOTE | 2021-09-04 11:02 | RAD_ITS ---
STUDY: X-RAY - LUMBAR SPINE REASON FOR EXAM: Male, 76 years old. Low back pain TECHNIQUE: 4 view(s) of the lumbar spine were obtained. COMPARISON: None FINDINGS: Normal lumbar lordosis. There is no substantial scoliosis. There is a normal alignment of the vertebrae. There is multilevel endplate spondylosis of the lumbar vertebrae. There is multi-level degenerative disc disease with multi-level disc space narrowing. There is no demonstrated fracture. There is atherosclerotic calcification of the abdominal aorta without a demonstrated aneurysm. Right-sided nephrolithiasis suspected RAD/L/S Spine Min 4 Views IMPRESSION: Degenerative changes of the spine, as detailed above. No acute findings Likely right nephrolithiasis Electronically Signed: Jorge Douglass MD at 11:36 EDT ,
[2021-09-04 12:05] LABS: Hematocrit 31.8 % (40-54); Hemoglobin 9.6 g/dL (13.0-16.5); Mean Corp Hgb Conc 30.2 g/dL (32-36); Mean Corpuscular Hgb 25.9 pg (27.0-32.0); Mean Corpuscular Volume 85.9 fL (80-94); Mean Platelet Vol. 12.5 fl (6.2-12.0); Platelet Count 275 K/mm3 (150-450); RBC Distribution Width CV 14.6 % (11.6-14.6); RBC Distribution Width SD 45.1 fl (35.1-43.9)
[2021-09-04 12:38] LABS: Vitamin D,25 Hydroxy 73.9 ng/mL
[2021-09-04 13:06] LABS: AST(SGOT) 17 U/L (15-37); Alanine Aminotransfer ALT/SGPT 14 U/L (16-61); Albumin, Serum 3.5 g/dL (3.2-5.0); Alkaline Phosphatase 24 U/L (45-117); Anion Gap 7 (5-15); BUN 37 mg/dL (7-18); Bilirubin, Direct 0.11 mg/dL (0.00-0.30); Calcium,Total 10.1 mg/dL (8.5-10.1); Chloride 106 mmol/L (98-107); Cholesterol 165 mg/dL (200); Creatinine, Serum 2.46 mg/dL (0.70-1.30); EST Glomerular Filtration Rate 27 mL/min (>60); Est Glom Filt Rate - Afr Amer 33 mL/min (>60); Globulin 5.2 g/dL (2.2-4.2); Glucose 103 mg/dL (74-106); High Density Lipoprotein 48 mg/dL; Potassium 4.1 mmol/L (3.5-5.1); Protein, Total 8.7 g/dL (6.4-8.2); Sodium Level 137 mmol/L (136-145); Triglycerides 123 mg/dL; Very Low Density Lipoprotein 25 mg/dL (5-40)
== END 2021-09-04 23:59 | disposition home or self-care (01) ==
LOC: MTLAB 11:00
PROVIDERS: PCP Family Medicine; Referring Provider Family Medicine; Visit Provider Family Medicine
DX: M54.9 Dorsalgia, unspecified (principal); N18.30 Chronic kidney disease, stage 3 unspecified; E78.00 Pure hypercholesterolemia, unspecified
CPT/HCPCS: 36415; 72110; 80048; 80061; 80076; 82306; 85027

== ENCOUNTER → 2021-12-05 | Outpatient (CLI) | payer MEDICARE, SELFPAY ==
[2021-12-05 15:23] LABS: Anion Gap 8 (5-15); BUN 33 mg/dL (7-18); BUN/Creat Ratio 13.6 RATIO (10-20); Calcium,Total 9.7 mg/dL (8.5-10.1); Chloride 106 mmol/L (98-107); Creatinine, Serum 2.43 mg/dL (0.70-1.30); EST Glomerular Filtration Rate 28 mL/min (>60); Est Glom Filt Rate - Afr Amer 33 mL/min (>60); Glucose 90 mg/dL (74-106); Potassium 3.9 mmol/L (3.5-5.1); Sodium Level 137 mmol/L (136-145)
== END | disposition home or self-care (01) ==
LOC: MFPLAB 11:28
PROVIDERS: PCP Family Medicine; Visit Provider Family Medicine
DX: N18.30 Chronic kidney disease, stage 3 unspecified (principal)
CPT/HCPCS: 36415; 80048

== ENCOUNTER 2022-01-11 21:11 | Inpatient (IN) | payer MEDICARE, SELFPAY ==
[2022-01-11 21:12] VITALS: BP 107/68; PULSE 69; RESP 18; TEMP 36.6; O2SAT 100; BMI 24.0
--- NOTE | 2022-01-11 21:37 | EKG12_ITS ---
Test Reason : DYSRHYTHMIA Blood Pressure : / mmHG Vent. Rate : 065 BPM Atrial Rate : 065 BPM P-R Int : 180 ms QRS Dur : 090 ms QT Int : 412 ms P-R-T Axes : 067 011 050 degrees QTc Int : 428 ms Normal sinus rhythm Low voltage QRS Borderline ECG Confirmed by TRACY APPLE, AROLDO ([id number]), writer editor LOUISE GOODE ([id number]) on 01/14/2022 10:16:35 AM Referred By: Confirmed By:AROLDO MOLINA MD
--- NOTE | 2022-01-11 21:38 | ED.VIS.GI ---
HPI HPI - GI History of Present Illness Chief Complaint: GI Bleed Detail of Chief Complaint: Bright red blood/maroon blood per rectum and passing out Informant: patient, spouse/S.O. and family Abdominal Pain/Flank Pain Onset: Today (Patient has passed out 3 times. He has had blood per rectum per ) Context: Sudden Onset Timing: Intermittent Quality: Cramping Location: Diffuse Current Severity: Mild Maximum Severity: Mild Worsened by: Nothing Relieved by: Nothing Nausea/Vomiting/Emesis GI Symptom: Negative for Nausea or Vomiting Diarrhea/Melena/Hematochezia GI Symptom: Positive for Diarrhea, Melena and Hematochezia Onset: Today Stool Quality: Positive for Loose and Maroon Associated Symptoms Associated Symptoms: Negative for Dysuria, Frequency, Hematuria or Urgency Narrative Narrative: Patient is an elderly man who presents because of blood per rectum. He has had 3 episodes of syncope. He had a syncopal episode observed by the paramedics. He is on a baby aspirin a day. He is on no anticoagulant. He is not a good informant. is anxious. She believes he had a seizure. Based on what she described he had a syncopal episode. There was no postictal state. There is no incontinence of urine or stool. He did not bite his tongue and he denies headache. Prior similar symptoms: No Recent Illness/Hospitalization: No PFSH PFSH Allergy/AdvReac Type Severity Reaction Status Date / Time No Known Allergies Allergy Verified 01/11/22 21:18 Social History (Updated 01/11/22 @ 21:[address] Haroon Isabel MD) household members: spouse Smoking Status: Never smoker alcohol intake: former substance use type: does not use ROS ROS ED Constitutional Constitutional ED: Denies chills, fever(s), subjective, sweats or weight loss ENT ENT ED: Denies ear pain, rhinorrhea or sore throat Cardiovascular Cardiovascular: Denies chest pain or palpitations Respiratory/Chest Respiratory/Chest: Denies cough, dyspnea or dyspnea on exertion Gastrointestinal Gastrointestinal: Reports abdominal pain, diarrhea and melena; Denies constipation, nausea or vomiting Genitourinary Genitourinary ED: Denies dysuria, hematuria or urinary frequency Musculoskeletal Musculoskeletal: Denies arthralgias, back pain or myalgias Neurologic Neurologic: Reports weakness; Denies headache(s) or paresthesias Psychiatric Psychiatric: Denies anxiety Endocrine Endocrinology: Denies polydipsia, polyphagia or polyuria Hematologic/Lymphatic Hematologic/Lymphatic: Denies easy bleeding or easy bruising EXAM Physical Exam Const Vital Signs: 01/11/22 21:12 01/11/22 22:48 Temperature 97.9 F 97.8 F Temperature Source Oral Temporal Pulse Rate 69 69 Respiratory Rate 18 20 H Blood Pressure 107/68 112/64 Blood Pressure Mean 81 80 Pulse Ox 100 98 Oxygen Delivery Method Room Air Room Air Positive well nourished and well developed Constitutional Narrative: Patient does not appear well. He is very pale in appearance. General Appearance ED: well developed, NAD and pallor HEENT Reports TM's clear and moist mucous membranes normocephalic and atraumatic Tympanic Membrane ED: Yes TM's clear Eyes PERRL and EOMs intact bilaterally General Eye ED: Yes pale conjunctiva; Negative for scleral icterus Neck no lymphadenopathy, supple and no JVD Resp normal respiratory effort and clear to auscultation bilaterally Cardio regular rate, regular rhythm, S1 normal heart sound, S2 normal heart sound and no murmurs GI non-tender, non-distended and no masses GI Narrative: Patient does have an external hemorrhoid noted. There is no active bleeding. Patient's stool is maroon in color. Auscultation: hyperactive bowel sounds Palpation: soft Back/Spine no CVA tenderness Extremity full ROM General Extremety ED: Negative for tenderness Neuro CN's II-XII intact bilaterally, moves all extremities and no sensory deficits noted Sensorium / Orientation: Negative for alert Psych mental status grossly normal Skin no wounds General Skin Exam: pallor; Negative for jaundice MDM MDM MDM Narrative Medical decision making narrative: Suspect patient sickle episode is due to GI bleed. Clinically he has a hemoglobin of approximately 6. He has been typed and screened. Appropriate blood work is ordered. He will require admission. Since he has had multiple sickle episodes will give fluid bolus. EKG was obtained to evaluate for cardiac ischemia. Patient's had a 2 g drop in hemoglobin. Since he has had 4 sickle episodes he was typed and crossed for 2 units of blood he will receive 1 unit in the emergency department. Will obtain GI consult. Recommend admission to stepdown. Inform patient and family of results. Patient is hypotensive with systolic 96. Additional 500 cc bolus was ordered. Lab Data Attestation: I reviewed the patient's lab results. Lab results narrative: Electrolyte panels marked for elevated BUN and creatinine. Creatinine is at baseline. GFR is 27. Coags are normal. Labs: Laboratory Results - last 24 hr 01/11/22 01/11/22 01/11/22 21:55 21:55 21:55 WBC 13.0 H RBC 3.08 L Hgb 7.8 L Hct 25.2 L MCV 81.8 MCH 25.3 L MCHC 31.0 L RDW Std Deviation 45.0 H RDW Coeff of Elma 15.2 H Plt Count 214 MPV 11.9 Immature Gran % (Auto) 0.400 Neut % (Auto) 84.5 H Lymph % (Auto) 6.7 L Roane % (Auto) 7.9 Eos % (Auto) 0.2 Baso % (Auto) 0.3 Absolute Neuts (auto) 11.0 H Absolute Lymphs (auto) 0.87 Nucleated RBC % 0 PT 14.1 INR 1.1 APTT 22.7 L Sodium 138 Potassium 4.0 Chloride 107 Carbon Dioxide 22.0 Anion Gap 9 BUN 39 H Creatinine 2.44 H Estim Creat Clear Calc 22.52 Est GFR (MDRD) Af Amer 33 L Est GFR (MDRD) Non-Af 27 L BUN/Creatinine Ratio 16.0 Glucose 160 H Calcium 9.8 Total Bilirubin 0.30 AST 11 L ALT 9 L Alkaline Phosphatase 22 L Total Protein 7.0 Albumin 2.8 L Globulin 4.2 Albumin/Globulin Ratio 0.7 L Critical Care Time Critical Care Time: Yes Critical care time (excluding procedures): 30-74 minutes (32 minutes which includes), Including time spent: (History, physical, documentation, review of prior records and laboratory results, initiation of therapy, blood transfusion), Discussing w/Patient &/or Family/Brand Development Manager, Discussing w/Consultants (Discussion with Dr. Marley configuration management analyst and the hospitalist for admission.) and Arranging Admission or Transfer Discharge Plan Dx/Rx/DC Orders Clinical Impression: Acute GI bleeding, Anemia due to blood loss, acute, Orthostatic hypotension, Syncope and collapse, Signs and symptoms of anemia, Symptomatic anemia, Hypotension due to blood loss, Chronic kidney disease (CKD) stage G4/A1, severely decreased glomerular filtration rate (GFR) between 15-29 mL/min/1.73 square meter and albuminuria creatinine ratio less than 30 mg/g Disposition Disposition: Acute Care Hospital [facility]
[2022-01-11 22:06] LABS: Absolute Lymphocyte Count 0.87 X10^3/uL (0.83-4.51); Basophil# 0.04 X10^3/uL; Basophil% 0.3 % (0-1); Eosinophil# 0.03 X10^3/uL; Eosinophils% 0.2 % (0-5); Hematocrit 25.2 % (40-54); Hemoglobin 7.8 g/dL (13.0-16.5); Lymphocyte # 0.87 X10^3/ul (0.83-4.51); Lymphocyte % 6.7 % (19-41); Mean Corpuscular Hgb 25.3 pg (27.0-32.0); Mean Corpuscular Volume 81.8 fL (80-94); Mean Platelet Vol. 11.9 fl (6.2-12.0); Monocyte# 1.03 X10^3/uL; Monocyte% 7.9 % (0-10); NRBC Flagged by Analyzer 0 % (0-5); Neutrophil % 84.5 % (47-70); Platelet Count 214 K/mm3 (150-450); RBC Distribution Width CV 15.2 % (11.6-14.6); Red Blood Count 3.08 M/mm3 (4.6-6.2)
[2022-01-11 22:17] LABS: International Normalized Ratio 1.1; Prothrombin Time (Protime)PT. 14.1 SECONDS (11.7-14.9)
[2022-01-11 22:18] LABS: Partial Thromboplast Time 22.7 Seconds (24.1-36.2)
[2022-01-11 22:24] LABS: ALB/GLOB Ratio 0.7 RATIO (0.9-2.4); AST(SGOT) 11 U/L (15-37); Alanine Aminotransfer ALT/SGPT 9 U/L (16-61); Albumin, Serum 2.8 g/dL (3.2-5.0); Alkaline Phosphatase 22 U/L (45-117); Anion Gap 9 (5-15); BUN 39 mg/dL (7-18); Calcium,Total 9.8 mg/dL (8.5-10.1); Chloride 107 mmol/L (98-107); Creatinine, Serum 2.44 mg/dL (0.70-1.30); EST Glomerular Filtration Rate 27 mL/min (>60); Est Glom Filt Rate - Afr Amer 33 mL/min (>60); Estimated Creatinine Clearance 22.52 ml/min; Globulin 4.2 g/dL (2.2-4.2); Glucose 160 mg/dL (74-106); Sodium Level 138 mmol/L (136-145)
[2022-01-11] MEDS: Ondansetron 4 MG/2 ML Vial IV (22:25)
[2022-01-11 22:48] VITALS: BP 112/64; PULSE 69; RESP 20; TEMP 36.6; O2SAT 98
[2022-01-11] MEDS: Metoclopramide 10 MG/2 ML Vial 5 MG IV (22:58)
--- NOTE | 2022-01-11 23:00 | HP.PCM.HOS_ITS ---
HPI - General General Date of Admission: 01/11/22 Date of Service: 01/11/22 Chief Complaint: Patient very weak, passed out 3 times, maroon-colored blood, GI bleed with low BP HPI Narrative LÓPEZ WASHINGTON, is a 76 M gentleman was brought to ED by EMS for being weak, shortness of breath on exertion and bright red blood diarrhea for 1 day. Pa bonnie was found with weak pulse, BP 92/60, heart rate 78/min. Patient was also unresponsive for 20 seconds as per EMS. As per , he has been weak for about 2 to 3 months with gets wobbly, dizzy on walking, losing balance and fall. Patient does not remember well himself with hard time in recall probably worsening dementia as per patient daughter. Patient when he stands up he feels dizzy. He had syncopal episodes about 4 times today. The and the concern that he does not remember, he spaces out, eyes rolled up and then passed out. She had the concern of seizure but never saw tonic or clonic movement or shaking. He did not had any urinary incontinence, tongue bite or prolonged c onfusion or unresponsiveness but he quickly wakes up within 2 to 3 minutes. ER physician also does not think it is seizure but more syncopal episode due to orthostatic hypotension and severe anemia possible convulsive orthostatic syncope. Patient denies chest pain, shortness of breath, abdominal pain. He had 4 bouts of bright red rectal bleed. ER physician did rectal exam and was bright red probably hemorrhoidal bleed. also noticed 3-4 times vomiting, moderate amount but could not say confidently whether coffee-ground, dark color. She mentioned pinkish colored on lips. In ED, patient had low blood pressure which was recently developed to systolic 112/64, heart rate 69, no hypoxia or tachypnea. Patient afebrile. H&H 7.8/25%. BUN/creatinine 39/2.44. Twelve-lead EKG individually reviewed and shows normal sinus rhythm 65 bpm. QTc 428 ms. GI is consulted from ER physician and patient further admitted. [facility] Allergy/AdvReac Type Severity Reaction Status Date / Time No Known Allergies Allergy Verified 01/11/22 21:18 Social History household members: spouse Smoking Status: Former smoker alcohol intake: former substance use type: does not use ROS ROS Narrative 14 ROS obtained from patient's and daughter. Patient seems to have dementia with amnesia and hard to recall Dizzy lightheaded recurrent fall, syncope as mentioned in HPI Denies dysuria, new LUTS or new urinary incontinence No abdominal pain. Rest as mentioned in HPI Generalized weakness. Poor balance. Recurrent fall, wobbly gait Dementia, flat affect No rash, bruise or bleeding. No history of DVT/PE Rest 14 ROS is either unobtainable due to the patient's dementia or mentioned in HPI Review of Systems ROS Unobtainable: other Details: Dementia Vital Signs Vital Signs Vital Signs: 01/11/22 21:12 01/11/22 22:48 Temperature 97.9 F 97.8 F Temperature Source Oral Temporal Pulse Rate 69 69 Respiratory Rate 18 20 H Blood Pressure 107/68 112/64 Blood Pressure Mean 81 80 Pulse Ox 100 98 Oxygen Delivery Method Room Air Room Air Weight Weight: 148 lb 12.992 oz Body Mass Index (BMI) 24.0 Physical Exam Narrative General: Alert, Oriented x3, Cooperative, fatigued, pale looking HEENT: Pale conjunctiva atraumatic, PERRLA, EOMI, Normocephalic Oral: Oral mucosa dry. No Gingival or Mucosal Lesions/ Ulcerations Neck: Supple, No JVD, Negative Carotid Bruits Lungs: Air entry diminished in bilateral lung bases. No crepitation/rhonchi Cardiovascular: Sinus rhythm, Normal S1, Normal S2, No murmurs Abdomen: Bowel Sounds Present, Soft, Non Tender, Non-Distended : No renal angle tenderness. No suprapubic tenderness. Extremities: No edema, Capillary Refill Less than 3 Seconds Skin: No rashes, No breakdown Musculoskeletal: No Tenderness to Palpation of Joints or Extremities. Muscle strength 4/5 at major joints of lower extremities Neurological: Cranial nerves II-XII grossly intact, DTR 2+/4, no focal lateralizing signs Psych/Mental Status: Flat affect. Dementia, amnesia Results Lab / Micro Data Result Diagrams: 01/11/22 21:55 01/11/22 21:55 Labs: Laboratory Results - last 24 hr 01/11/22 21:55: WBC 13.0 H, RBC 3.08 L, Hgb 7.8 L, Hct 25.2 L, MCV 81.8, MCH 25.3 L, MCHC 31.0 L, RDW Std Deviation 45.0 H, RDW Coeff of Elma 15.2 H, Plt Count 214, MPV 11.9, Immature Gran % (Auto) 0.400, Neut % (Auto) 84.5 H, Lymph % (Auto) 6.7 L, Dunn % (Auto) 7.9, Eos % (Auto) 0.2, Baso % (Auto) 0.3, Absolute Neuts (auto) 11.0 H, Absolute Lymphs (auto) 0.87, Nucleated RBC % 0 01/11/22 21:55: PT 14.1, INR 1.1, APTT 22.7 L 01/11/22 21:55: Sodium 138, Potassium 4.0, Chloride 107, Carbon Dioxide 22.0, Anion Gap 9, BUN 39 H, Creatinine 2.44 H, Estim Creat Clear Calc 22.52, Est GFR (MDRD) Af Amer 33 L, Est GFR (MDRD) Non-Af 27 L, BUN/Creatinine Ratio 16.0, Glucose 160 H, Calcium 9.8, Total Bilirubin 0.30, AST 11 L, ALT 9 L, Alkaline Phosphatase 22 L, Total Protein 7.0, Albumin 2.8 L, Globulin 4.2, Albumin/Globulin Ratio 0.7 L Assessment & Plan Assessment/Plan (1) Acute GI bleeding: (2) Syncope and collapse: (3) Symptomatic anemia: PLAN: Plan This 76-year-old gentleman admitted for severe anemia, GI bleed, recurrent syncope and low BP 1. Acute GI bleed exact site unclear probably lower GI bleed or rapid transit upper GI bleed: Patient is being admitted in PCU. Protonix 40 mils IV daily, first dose now. I do not think patient has variceal bleed or peptic ulcer bleed. Monitor H&H. Platelet count 114,000. Patient has mild leukocytosis probably due to stress. No clinical signs or symptoms of infection. Keep the patient n.p.o. for possible EGD/colonoscopy tomorrow a.m. 2. Acute symptomatic anemia from GI blood loss on baseline anemia of chronic disease: Patient baseline hemoglobin runs between 9 to 10 g. Admitted with H&H 7.8/25%. 1 unit of transfusion ordered by ED physician. 3. Recurrent syncope most probably orthostatic: In appropriate clinical context, most common cause of syncope is orthostatic from GI bleed and low BP. Low BP does not merit the diagnosis of hypertension. had concern of seizure which clinically does not seem to be but cannot be ruled out confidently. He does not have a history of epilepsy. Discussed with that this admission is for acute GI bleed and recurrent syncope and we are not going to do work-up for seizure but patient can follow-up with neurologist Dr. Pearl for concern of seizure. We do not have inpatient neurologist. She agrees with the plan. Orthostatic BP in the morning. IV fluid resuscitation. Monitor for seizure. Ativan 2 mg IV as needed for seizure episode. Last echo in October 2019 reported EF 60% with LV systolic function normal. Mild TR. PASP 30 mmHg 4.. CKD stage G4: Patient creatinine is 2.44, has been since July 2021. Creatinine was 2.28 in June 2021. Monitor kidney function electrolytes. Electrolytes in normal range. 5. Dementia, functional decline with recurrent fall, adult failure to thrive: PT and OT ordered Living will/advanced directive/end of life care: Patient does have living will or advanced directive. His is power of bankruptcy attorney for health. After discussion of benefits/risks procedures involved with full code, DNR CC arrest and DNR CC, the patient, his and daughter opted for DNRCC arrest with no intubation Patient along with family do not want artificial life support including intuba tion, tube feed, ventilator and/chest compression, central venous catheter, vasopressor and DC shock if needed Total time spent in [id number] encounter in discussion of advanced directive 16 minutes. Charges/Coding Visit Charges Inpatient E&M: 57669 Init Hosp L3 Procedures Hospitalists Procedures: 29632 Advncd Care Plan 30 Min
[2022-01-11 23:25] LABS: Lactic Acid 2.1 mmol/L (0.4-1.9)
[2022-01-11 23:59] VITALS: BP 114/69; PULSE 79; RESP 16; TEMP 36.8; O2SAT 98
[2022-01-12] VITALS (33 sets, daily range): BP systolic 54–125; BP diastolic 39–75; PULSE 56–101; RESP 16–25; TEMP 36.4–37.2; O2SAT 91–100; BMI 23.1
--- NOTE | 2022-01-12 | IMM_PTH ---
PATIENT: LÓPEZ WASHINGTON LOC: [facility] U#:[id number] AGE/SX: 76/M ROOM: [facility] RE01/11/[address]: Dr. Loc Dickens DO : 1945 BED: 1 DIS: 01/13/2022 SPEC #: [id number] RECD: 01/16/22 06:23 STATUS: CHELSY REQ #: [id number] ISH: 01/12/22 00:[address]: Parish Marley DEPT: IMMUNOHISTOCHEMISTRY RECD BY: Scott Simpson ENTERED: 01/16/22 06:25 SP TYPE: IMMUNO OTHR DR: Candelaria Mullins, ELECTRICAL MANUFACTURING ENGINEER-C MD Dr. Andrea Napier DO Dr. Jodi Hannan, MD Dr. Mark Tereletsky, MD Chinyere Card Dr., ELECTRICAL MANUFACTURING ENGINEER-C Kacie Garcia ELECTRICAL MANUFACTURING ENGINEER-C Tissues: Gastric mucous membrane Procedures: MSH2 (add) MLH-1 (add) MSH6 (add) Anti-PMS2 (add) FLOWERS-2 (add) KI-67 (add) P53 (add) HER-2-SELMA (initial) PHYSICIAN & [place] [id number] SPECIMEN INFORMATION: Tissue Source: Hepatic flexure mass Clinical Info: Acute GI bleeding, syncope and collapse, symptomatic anemia Specimen Number: [id number] CPT code: 77803, 91480 x7 METHODOLOGY: Deparaffinized sections of prefer/formalin-fixed tissue or PAP/DQ stained slides are incubated with monoclonal/polyclonal antibodies/oligonucleotide probes. Localization is made via biotin free immunoperoxidase method. Appropriate controls are performed and reacted as expected. Results on target cell population are indicated in the following table: RESULTS: ANTIBODY / CLONE RESULT Her-2neu (CB11) negative (0) FLOWERS-2 (SP21) positive MLH-1 (M1) negative MSH2 (25D12) positive MSH6 (44) positive PMS2 (HTJ3995) positive Ki-67 (30-9) positive, high P53 (DO-7) positive These tests were developed and their performance characteristics determined by [facility]. They may not have been cleared or approved by the U.S. Food and Drug Administration. The FDA has determined that such clearance or approval is not necessary. The above immunohistochemical/dualISH markers are ordered and reviewed by the Pathologist. INTERPRETATION: Hepatic flexure mass, biopsy: Invasive adenocarcinoma. Result of Microsatellite Instability Study: Positive (loss of mismatch protein; microsatellite instability detected). Complete loss of MLH1 SJ:baldomero 01/16/22
[2022-01-12] MEDS: 0.9% Normal Saline 1,000 ML 100 ML IV ×2 (01:27→09:30)
[2022-01-12 01:28] LABS: Phosphorus 4.9 mg/dL (2.5-4.9)
[2022-01-12 02:10] LABS: Reflex Lactate? Y
[2022-01-12 02:55] LABS: Absolute Lymphocyte Count 1.08 X10^3/uL (0.83-4.51); Absolute Neutrophil Count 8.4 X10^3/uL (2.0-7.7); Basophil# 0.02 X10^3/uL; Basophil% 0.2 % (0-1); Hematocrit 22.7 % (40-54); Hemoglobin 7.2 g/dL (13.0-16.5); Lymphocyte # 1.08 X10^3/ul (0.83-4.51); Lymphocyte % 10.3 % (19-41); Mean Corp Hgb Conc 31.7 g/dL (32-36); Mean Corpuscular Hgb 26.4 pg (27.0-32.0); Mean Corpuscular Volume 83.2 fL (80-94); Mean Platelet Vol. 12.4 fl (6.2-12.0); Monocyte# 0.91 X10^3/uL; Monocyte% 8.7 % (0-10); NRBC Flagged by Analyzer 0 % (0-5); Neutrophil # 8.43 X10^3/uL (2.7-7.7); Neutrophil % 80.3 % (47-70); Platelet Count 166 K/mm3 (150-450); RBC Distribution Width CV 15.5 % (11.6-14.6); RBC Distribution Width SD 46.8 fl (35.1-43.9); Red Blood Count 2.73 M/mm3 (4.6-6.2); White Blood Count 10.5 K/mm3 (4.4-11.0)
[2022-01-12 03:18] LABS: Lactic Acid 1.1 mmol/L (0.4-1.9)
[2022-01-12 03:24] LABS: Anion Gap 7 (5-15); BUN 41 mg/dL (7-18); BUN/Creat Ratio 19.2 RATIO (10-20); Calcium,Total 8.8 mg/dL (8.5-10.1); Chloride 113 mmol/L (98-107); Creatinine, Serum 2.13 mg/dL (0.70-1.30); EST Glomerular Filtration Rate 32 mL/min (>60); Est Glom Filt Rate - Afr Amer 39 mL/min (>60); Estimated Creatinine Clearance 25.79 ml/min; Glucose 127 mg/dL (74-106); Potassium 4.4 mmol/L (3.5-5.1); Sodium Level 141 mmol/L (136-145); Thyroid Stim Hormone (TSH) 3.48 uIU/mL (0.358-3.74)
[2022-01-12] MEDS: Lactated Ringers 500 ML 999 ML IV (05:45)
[2022-01-12] MEDS: 0.9% Saline Lock 10 ML Syringe IV ×3 (09:34→20:59)
[2022-01-12 10:36] LABS: Hematocrit 24.6 % (40-54); Hemoglobin 7.8 g/dL (13.0-16.5)
--- NOTE | 2022-01-12 13:30 | CON.PCM_ITS ---
Assessment & Plan Assessment/Plan (1) Acute GI bleeding: PLAN: The differential diagnosis for his acute GI bleed would be upper GI bleed with rapid transit secondary to AVM, peptic ulcer disease from the stomach or duodenum or proximal jejunum, lower GI bleed secondary to diverticular bleed, hemorrhoidal bleed or angiodysplasia, ischemic colitis secondary to hypotension and less likely malignancy. He will undergo an EGD and possibly a colonoscopy. Him and his were explained alternatives, risk, benefits including understanding bleeding, infection, sepsis, perforation, need for urgent . He will have an ASA of 3. HPI Consult Data Date of Consult: 01/12/22 HPI Narrative Reason for Consultation: GI bleeding HPI Narrative: LÓPEZ WASHINGTON, is a 76 M who presents from home after several episodes of syncope as per his . Patient is an elderly man who presents because of blood per rectum.? He has had 3 episodes of syncope.? He had a syncopal episode observed by the paramedics.? He is on a baby aspirin a day.? He is on no anticoagulant.? He is not a good informant.? is anxious.? She believes he had a seizure.? Based on what she described he had a syncopal episode.? There was no postictal state.? There is no incontinence of urine or stool.? He did not bite his tongue and he denies headache. In the ER his hemoglobin was 7.2. He received 2 units of packed red blood cells and is receiving another unit of packed red blood cells and his hemoglobin went up to 7.8. He does have CKD therefore CT scan abdomen pelvis was not ordered to see if he has significant diverticular disease. He was determined to have a thrombosed and ruptured hemorrhoid that was seen on physical exam in the ER. As per his he has been dealing with vertigo causing dizziness and weakness. All other 16 review of systems are negative except those pertinent positive mentioned HPI. PFSH Allergy/AdvReac Type Severity Reaction Status Date / Time No Known Allergies Allergy Verified 01/11/22 21:18 Social History household members: spouse Smoking Status: Former smoker alcohol intake: former substance use type: does not use ROS ROS Narrative 14 ROS obtained from patient's and daughter. Patient seems to have dementia with amnesia and hard to recall Dizzy lightheaded recurrent fall, syncope as mentioned in HPI Denies dysuria, new LUTS or new urinary incontinence No abdominal pain. Rest as mentioned in HPI Generalized weakness. Poor balance. Recurrent fall, wobbly gait Dementia, flat affect No rash, bruise or bleeding. No history of DVT/PE Rest 14 ROS is either unobtainable due to the patient's dementia or mentioned in HPI Review of Systems ROS Unobtainable: other Details: Dementia Physical Exam Narrative General: Alert, Oriented x3, Cooperative, fatigued, pale looking HEENT: Pale conjunctiva atraumatic, PERRLA, EOMI, Normocephalic Oral: Oral mucosa dry. No Gingival or Mucosal Lesions/ Ulcerations Neck: Supple, No JVD, Negative Carotid Bruits Lungs: Air entry diminished in bilateral lung bases. No crepitation/rhonchi Cardiovascular: Sinus rhythm, Normal S1, Normal S2, No murmurs Abdomen: Bowel Sounds Present, Soft, Non Tender, Non-Distended : No renal angle tenderness. No suprapubic tenderness. Extremities: No edema, Capillary Refill Less than 3 Seconds Skin: No rashes, No breakdown Musculoskeletal: No Tenderness to Palpation of Joints or Extremities. Muscle strength 4/5 at major joints of lower extremities Neurological: Cranial nerves II-XII grossly intact, DTR 2+/4, no focal lateralizing signs Psych/Mental Status: Flat affect. Dementia, amnesia Lab / Micro Data Result Diagrams: 01/12/22 10:15 01/12/22 02:43 Labs: Laboratory Results - last 24 hr 01/11/22 21:55: WBC 13.0 H, RBC 3.08 L, Hgb 7.8 L, Hct 25.2 L, MCV 81.8, MCH 25.3 L, MCHC 31.0 L, RDW Std Deviation 45.0 H, RDW Coeff of Elma 15.2 H, Plt Count 214, MPV 11.9, Immature Gran % (Auto) 0.400, Neut % (Auto) 84.5 H, Lymph % (Auto) 6.7 L, Stevens % (Auto) 7.9, Eos % (Auto) 0.2, Baso % (Auto) 0.3, Absolute Neuts (auto) 11.0 H, Absolute Lymphs (auto) 0.87, Nucleated RBC % 0 01/11/22 21:55: PT 14.1, INR 1.1, APTT 22.7 L 01/11/22 21:55: Sodium 138, Potassium 4.0, Chloride 107, Carbon Dioxide 22.0, Anion Gap 9, BUN 39 H, Creatinine 2.44 H, Estim Creat Clear Calc 22.52, Est GFR (MDRD) Af Amer 33 L, Est GFR (MDRD) Non-Af 27 L, BUN/Creatinine Ratio 16.0, Glu cose 160 H, Calcium 9.8, Total Bilirubin 0.30, AST 11 L, ALT 9 L, Alkaline Phosphatase 22 L, Total Protein 7.0, Albumin 2.8 L, Globulin 4.2, Albumin/Globulin Ratio 0.7 L 01/11/22 21:55: Blood Type O POSITIVE, Antibody Screen NEGATIVE 01/11/22 21:55: Crossmatch See Detail 01/11/22 21:55: Phosphorus 4.9, Magnesium 2.0 01/11/22 21:55: Crossmatch See Detail 01/11/22 22:00: Lactic Acid 2.1 H* 01/12/22 02:43: WBC 10.5, RBC 2.73 L, Hgb 7.2 L, Hct 22.7 L, MCV 83.2, MCH 26.4 L, MCHC 31.7 L, RDW Std Deviation 46.8 H, RDW Coeff of Elma 15.5 H, Plt Count 166, MPV 12.4 H, Immature Gran % (Auto) 0.500, Neut % (Auto) 80.3 H, Lymph % (Auto) 10.3 L, Stevens % (Auto) 8.7, Eos % (Auto) 0.0, Baso % (Auto) 0.2, Absolute Neuts (auto) 8.4 H, Absolute Lymphs (auto) 1.08, Nucleated RBC % 0 01/12/22 02:43: Sodium 141, Potassium 4.4, Chloride 113 H, Carbon Dioxide 21.0, Anion Gap 7, BUN 41 H, Creatinine 2.13 H, Estim Creat Clear Calc 25.79, Est GFR (MDRD) Af Amer 39 L, Est GFR (MDRD) Non-Af 32 L, BUN/Creatinine Ratio 19.2, Gl ucose 127 H, Calcium 8.8, TSH 3.48 01/12/22 02:43: Lactic Acid 1.1 01/12/22 10:15: Hgb 7.8 L, Hct 24.6 L Charges/Coding Visit Charges Inpatient E&M: 14669 Init Hosp L2
--- NOTE | 2022-01-12 13:35 | COLBX_PTH ---
PATIENT: LÓPEZ WASHINGTON LOC: [facility] U#:[id number] AGE/SX: 76/M ROOM: [facility] RE01/11/[address]: Dr. Loc Dickens DO : 1945 BED: 1 DIS: 01/13/2022 SPEC #: [id number] RECD: 01/12/22 14:59 STATUS: CHELSY MAX #: [id number] ISH: 01/12/22 13:[address]: Parish Marley DEPT: SURGICAL PATHOLOGY RECD BY: Scott Simpson ENTERED: 01/14/22 08:45 SP TYPE: COLON BX OTHR DR: Candelaria Mullins, MILLER APPRENTICE-C MD Dr. Andrea Napier DO Dr. Jodi Hannan, MD Dr. Mark Tereletsky, DO Dr. Prakash Chand, MD Melinda Salyers, MILLER APPRENTICE-C Kacie Garcia MILLER APPRENTICE-C Tissues: COLON BIOPSY Procedures: Surgery Specimen Level IV HEADER OPERATION: Colonoscopy, EGD PRE-OP DIAGNOSIS: Acute GI bleeding, syncope and collapse, symptomatic anemia TISSUE SUBMITTED: Hepatic flexure mass MICROSCOPIC DIAGNOSIS Hepatic flexure mass, biopsy: Moderately differentiated invasive adenocarcinoma. See comment. ARLENE 01/15/22 COMMENT Immunohistochemistry ([id number]) for microsatellite instability (mismatched repair protein) will be performed and results will be reported separately. Tumor also show extensive ulceration and associated inflammation. Case has been reviewed in consultation with Dr. Rice who concurs with the above diagnosis. IDC:AM MICROSCOPIC DESCRIPTION Slides are reviewed. GROSS DESCRIPTION Received is one container labeled with the patient?s name and designated hepatic flexure mass. The specimen consists of multiple irregular fragments of light matthew soft tissue that in aggregate measure 1.5 x 0.5 x 0.1 cm. The specimen is totally submitted in one cassette. /ARLENE:baldomero 01/14/22 TC:0 CPT:14108
--- NOTE | 2022-01-12 14:46 | OP.EGD_ITS ---
Patient Name: Victoriano Lewis Procedure Date: 01/12/2022 1:13 PM Date of : 1945 Age: 76 Procedure: Upper GI endoscopy Indications: Hematochezia Providers: Parish Marley DO Medicines: Monitored Anesthesia Care Patient Profile: This is a 76 year old male. Refer to note in patient chart for documentation of history and physical. Patient has symptoms. Complications: No immediate complications. Procedure: Pre-Anesthesia Assessment: - Prior to the procedure, a History and Physical was performed, and patient medications and allergies were reviewed. The patient is competent. The risks and benefits of the procedure and the sedation options and risks were discussed with the patient. All questions were answered and informed consent was obtained. Patient identification and proposed procedure were verified by the physician in the pre-procedure area. Mental Status Examination: alert and oriented. Airway Examination: normal oropharyngeal airway and neck mobility. Respiratory Examination: clear to auscultation. CV Examination: normal. Prophylactic Antibiotics: The patient does not require prophylactic antibiotics. Prior Anticoagulants: The patient has taken no previous anticoagulant or antiplatelet agents. ASA Grade Assessment: II - A patient with mild systemic disease. After reviewing the risks and benefits, the patient was deemed in satisfactory condition to undergo the procedure. The anesthesia plan was to use moderate sedation / analgesia (conscious sedation). Immediately prior to administration of medications, the patient was re-assessed for adequacy to receive sedatives. The heart rate, respiratory rate, oxygen saturations, blood pressure, adequacy of pulmonary ventilation, and response to care were monitored throughout the procedure. The physical status of the patient was re-assessed after the procedure. After obtaining informed consent, the endoscope was passed under direct vision. Throughout the procedure, the patient's blood pressure, pulse, and oxygen saturations were monitored continuously. The colonoscope was introduced through the mouth, and advanced to the second part of duodenum. The upper GI endoscopy was accomplished without difficulty. The patient tolerated the procedure well. Scope In: 2:01:25 PM Scope Out: 2:04:13 PM Total Procedure Duration Time 0 hours 2 minutes 48 seconds Findings: The examined esophagus was normal. A small hiatal hernia was present. The cardia and gastric fundus were normal on retroflexion. The entire examined stomach was normal. One non-bleeding cratered duodenal ulcer with no stigmata of bleeding was found in the duodenal bulb. The lesion was 6 mm in largest dimension. Biopsies were taken with a cold forceps for histology. Impression: - Normal esophagus. - Small hiatal hernia. - Normal stomach. - One non-bleeding duodenal ulcer with no stigmata of bleeding. Biopsied. Recommendation: - Await pathology results. - Use Protonix (pantoprazole) 40 mg PO daily. - Continue present medications. - No aspirin, ibuprofen, naproxen, or other non-steroidal anti-inflammatory drugs. Procedure Code(s): --- Professional --- 02352, Esophagogastroduodenoscopy, flexible, transoral; with biopsy, single or multiple CPT copyright 2017 [employer]. All rights reserved. The codes documented in this report are preliminary and upon assembly mechanic review may be revised to meet current compliance requirements. Parish Marley DO 01/12/2022 2:45:19 PM This report has been signed electronically. Number of Addenda: 1 Note Initiated On: 01/12/2022 1:13 PM Addendum Number: 1 Addendum Date: 03/07/2022 6:20:33 AM MAC was used as sedation for this procedure. Parish Marley DO 03/07/2022 6:20:39 AM This report has been signed electronically.
--- NOTE | 2022-01-12 14:46 | OP.CCLET_ITS ---
03/07/2022 Oswaldo Phoenix [address] [place] [address] Re : Upper GI endoscopy procedure for Victoriano Lewis Dear Dr. Phoenix This procedure was performed on Wednesday, January 12, 2022. My impressions and recommendations are as follows: Impressions : - Normal esophagus. - Small hiatal hernia. - Normal stomach. - One non-bleeding duodenal ulcer with no stigmata of bleeding. Biopsied. Recommendations : - Await pathology results. - Use Protonix (pantoprazole) 40 mg PO daily. - Continue present medications. - No aspirin, ibuprofen, naproxen, or other non-steroidal anti-inflammatory drugs. My findings are described in the full procedure note, which is enclosed. If I can be of further assistance, please feel free to contact me at . Sincerely, Parish Marley, 01/12/2022 2:45:19 PM This report has been signed electronically.
--- NOTE | 2022-01-12 14:56 | OP.COLON_ITS ---
Patient Name: Victoriano Lewis Procedure Date: 01/12/2022 2:04 PM Date of : 1945 Age: 76 Procedure: Colonoscopy Indications: Hematochezia Providers: Parish Marley DO Medicines: Monitored Anesthesia Care Patient Profile: This is a 76 year old male. Refer to note in patient chart for documentation of history and physical. Patient has symptoms. Last Colonoscopy: none. The patient's first colonoscopy is today. Complications: No immediate complications. Procedure: Pre-Anesthesia Assessment: - Prior to the procedure, a History and Physical was performed, and patient medications and allergies were reviewed. The patient is competent. The risks and benefits of the procedure and the sedation options and risks were discussed with the patient. All questions were answered and informed consent was obtained. Patient identification and proposed procedure were verified by the physician in the pre-procedure area. Mental Status Examination: alert and oriented. Airway Examination: normal oropharyngeal airway and neck mobility. Respiratory Examination: clear to auscultation. CV Examination: normal. Prophylactic Antibiotics: The patient does not require prophylactic antibiotics. Prior Anticoagulants: The patient has taken no previous anticoagulant or antiplatelet agents. ASA Grade Assessment: II - A patient with mild systemic disease. After reviewing the risks and benefits, the patient was deemed in satisfactory condition to undergo the procedure. The anesthesia plan was to use moderate sedation / analgesia (conscious sedation). Immediately prior to administration of medications, the patient was re-assessed for adequacy to receive sedatives. The heart rate, respiratory rate, oxygen saturations, blood pressure, adequacy of pulmonary ventilation, and response to care were monitored throughout the procedure. The physical status of the patient was re-assessed after the procedure. After I obtained informed consent, the scope was passed under direct vision. Throughout the procedure, the patient's blood pressure, pulse, and oxygen saturations were monitored continuously. The colonoscope was introduced through the anus and advanced to the terminal ileum. The colonoscopy was performed without difficulty. The patient tolerated the procedure well. The quality of the bowel preparation was poor. Scope In: 2:09:02 PM Scope Withdrawal Time 0 hours 23 minutes 22 seconds Scope Out: 2:40:15 PM Total Procedure Duration Time 0 hours 31 minutes 13 seconds Findings: The perianal and digital rectal examinations were normal. Many small and large-mouthed diverticula were found in the recto-sigmoid colon and sigmoid colon. There was no evidence of diverticular bleeding. An ulcerated partially obstructing large mass was found at the hepatic flexure. The mass was circumferential. The mass measured three cm in length. In addition, its diameter measured six mm. Spurting bleeding was present. This was biopsied with a cold large-capacity forceps for histology. Area was successfully injected with 5 mL of a 1:10,000 solution of epinephrine for drug delivery. Area was successfully injected with 5 mL Jacklyn ink for tattooing. Estimated blood loss was minimal. Lavage of the area was performed using a large amount of sterile water, resulting in clearance with adequate visualization. Impression: - Preparation of the colon was poor. - Moderate diverticulosis in the recto-sigmoid colon and in the sigmoid colon. There was no evidence of diverticular bleeding. - Malignant partially obstructing tumor at the hepatic flexure. Biopsied. Injected. - Malignant-appearing tumor in the colon. Recommendation: - Discharge patient to home. - Clear liquid diet. - Continue present medications. - Await pathology results. - Refer to a surgeon. - No repeat colonoscopy. Procedure Code(s): --- Professional --- 68903, Colonoscopy, flexible; with directed submucosal injection(s), any substance 96322, Colonoscopy, flexible; with biopsy, single or multiple CPT copyright 2017 [employer]. All rights reserved. The codes documented in this report are preliminary and upon real estate operations manager review may be revised to meet current compliance requirements. Parish Marley DO 01/12/2022 2:56:17 PM This report has been signed electronically. Number of Addenda: 1 Note Initiated On: 01/12/2022 2:04 PM Addendum Number: 1 Addendum Date: 03/07/2022 6:20:48 AM MAC was used as sedation for this procedure. Parish Marley DO 03/07/2022 6:20:55 AM This report has been signed electronically.
--- NOTE | 2022-01-12 14:57 | OP.CCLET_ITS ---
03/07/2022 Oswaldo Phoenix [address] [place] [address] Re : Colonoscopy procedure for Victoriano Lewis Dear Dr. Phoenix This procedure was performed on Wednesday, January 12, 2022. My impressions and recommendations are as follows: Impressions : - Preparation of the colon was poor. - Moderate diverticulosis in the recto-sigmoid colon and in the sigmoid colon. There was no evidence of diverticular bleeding. - Malignant partially obstructing tumor at the hepatic flexure. Biopsied. Injected. - Malignant-appearing tumor in the colon. Recommendations : - Discharge patient to home. - Clear liquid diet. - Continue present medications. - Await pathology results. - Refer to a surgeon. - No repeat colonoscopy. My findings are described in the full procedure note, which is enclosed. If I can be of further assistance, please feel free to contact me at . Sincerely, Parish Marley, 01/12/2022 2:56:17 PM This report has been signed electronically.
--- NOTE | 2022-01-12 17:23 | CT_ITS ---
STUDY: CT ABDOMEN AND PELVIS WITHOUT CONTRAST REASON FOR EXAM: Male, 76 years old. colon cancer -- Stage III chronic kidney disease RADIATION DOSAGE (If Supplied By Facility): CTDIvol = ( 7.16 ) mGy, DLP = ( 379.27 ) mGycm TECHNIQUE: Transaxial images were obtained from the dome of the diaphragm to the symphysis pubis without oral contrast, and without intravenous contrast. Sagittal and coronal images were reconstructed. Individualized dose optimization techniques were used for this CT. COMPARISON: None. FINDINGS: The visualized lung bases are unremarkable. The visualized portions of the heart are within normal limits. Normal liver. There are multiple gallstones. Normal spleen. Normal pancreas. Normal bilateral adrenal glands. Normal right kidney. 3.5 cm cyst in the upper pole the left kidney. 2 cm cyst in lower pole the left kidney. Normal visualized stomach. Normal small intestine. Severe wall thickening of the distal descending colon and hepatic flexure consistent with known colonic carcinoma. The appendix is visualized and appears normal. There is diffuse atherosclerotic calcification of the abdominal aorta, without a demonstrated aneurysm. Normal inferior vena cava. Normal retroperitoneum. Normal urinary bladder. Normal abdominal wall. Normal osseous structures. CT/Abdomen/Pelvis without Cont IMPRESSION: Known colonic carcinoma the hepatic flexure the colon. No obvious metastatic disease. Electronically Signed: Reynold Barrios MD at 18:42 EDT ,
--- NOTE | 2022-01-12 18:53 | PN.HOSP_ITS ---
Subjective Subjective Patient was seen and examined today, I talked with gastroenterology about his care, I also talked with his who was present at the time of my examination. Patient had a EGD and a colonoscopy done today, colonoscopy showed evidence of colon cancer at the hepatic flexure area. There was a nonbleeding duodenal u lceration noted in the duodenal bulb-this was only approximately 6 mm. According to nursing, the and the patient both made comments alluding to the fact that they probably would not want anything done concerning his colon cancer but the did agree to let the patient undergo a CT of the abdomen and pelvis which was ordered this afternoon. Patient received packed red blood cells today, I will repeat his CBC in the morning. Objective Data Objective Data Vital Signs: Vital Signs Temp Pulse Resp BP Pulse Ox O2 Del Method 97.9 F 82 18 122/67 H 98 Room Air 01/12/22 18:50 01/12/22 18:50 01/12/22 18:50 01/12/22 18:50 01/12/22 18:50 01/12/22 18:50 Oxygen Delivery Method Room Air Weight: 65.6 kg Body Mass Index (BMI) 23.1 Intake & Output: Intake and Output for Last 24 Hours 01/10/22 01/11/22 01/12/22 23:59 23:59 23:59 Intake Total 3788.33 / 3788.33 Output Total 425 / 425 Balance 3363.33 / 3363.33 Medical Nutrition Assessment Dietitian: Malnutrition Criteria Met Start: 01/12/22 14 :50 Freq: Status: Active Protocol: Document 01/12/22 14:50 SLA (Rec: 01/12/22 14:50 [facility] [id number]) Nutrition Malnutrition Evidence of Malnutrition Exists Yes Malnutrition (severe): Acute Illness/Injury Evidenced By Suboptimal Energy Intake ( Severe),Weight Loss (Severe) Clinical Problem Acute Disease or Injury Related Malnutrition Etiology severe related to inadequate energy intake of estimated nutritional needs Signs/Symptoms as evidenced by 6.9% wt loss and pt eating <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 Recommendation Dietitian Recommendations/Changes As medically able, rec diet as tolerated to Regular No Added Salt As medically able, rec 120 ml ensure enlive 4x/day w/ medpass Lab / Micro Data Result Diagrams: 01/12/22 10:15 01/12/22 02:43 Labs: Laboratory Results - last 24 hr 01/11/22 21:55: WBC 13.0 H, RBC 3.08 L, Hgb 7.8 L, Hct 25.2 L, MCV 81.8, MCH 25 .3 L, MCHC 31.0 L, RDW Std Deviation 45.0 H, RDW Coeff of Elma 15.2 H, Plt Count 214, MPV 11.9, Immature Gran % (Auto) 0.400, Neut % (Auto) 84.5 H, Lymph % (Auto) 6.7 L, [place]ville % (Auto) 7.9, Eos % (Auto) 0.2, Baso % (Auto) 0.3, Absolute Neuts (auto) 11.0 H, Absolute Lymphs (auto) 0.87, Nucleated RBC % 0 01/11/22 21:55: PT 14.1, INR 1.1, APTT 22.7 L 01/11/22 21:55: Sodium 138, Potassium 4.0, Chloride 107, Carbon Dioxide 22.0, Anion Gap 9, BUN 39 H, Creatinine 2.44 H, Estim Creat Clear Calc 22.52, Est GFR (MDRD) Af Amer 33 L, Est GFR (MDRD) Non-Af 27 L, BUN/Creatinine Ratio 16.0, Glucose 160 H, Calcium 9.8, Total Bilirubin 0.30, AST 11 L, ALT 9 L, Alkaline Phosphatase 22 L, Total Protein 7.0, Albumin 2.8 L, Globulin 4.2, Albumin/Globulin Ratio 0.7 L 01/11/22 21:55: Blood Type O POSITIVE, Antibody Screen NEGATIVE 01/11/22 21:55: Crossmatch See Detail 01/11/22 21:55: Phosphorus 4.9, Magnesium 2.0 01/11/22 21:55: Crossmatch See Detail 01/11/22 22:00: Lactic Acid 2.1 H* 01/12/22 02:43: WBC 10.5, RBC 2.73 L, Hgb 7.2 L, Hct 22.7 L, MCV 83.2, MCH 26.4 L, MCHC 31.7 L, RDW Std Deviation 46.8 H, RDW Coeff of Elma 15.5 H, Plt Count 166, MPV 12.4 H, Immature Gran % (Auto) 0.500, Neut % (Auto) 80.3 H, Lymph % (Auto) 10.3 L, Granville % (Auto) 8.7, Eos % (Auto) 0.0, Baso % (Auto) 0.2, Absolute Neuts (auto) 8.4 H, Absolute Lymphs (auto) 1.08, Nucleated RBC % 0 01/12/22 02:43: Sodium 141, Potassium 4.4, Chloride 113 H, Carbon Dioxide 21.0, Anion Gap 7, BUN 41 H, Creatinine 2.13 H, Estim Creat Clear Calc 25.79, Est GFR (MDRD) Af Amer 39 L, Est GFR (MDRD) Non-Af 32 L, BUN/Creatinine Ratio 19.2, Glucose 127 H, Calcium 8.8, TSH 3.48 01/12/22 02:43: Lactic Acid 1.1 01/12/22 10:15: Hgb 7.8 L, Hct 24.6 L Radiography Diagnostic Testing: Radiology Impression Abdomen/Pelvis CT 01/12/22 17:23 IMPRESSION: Known colonic carcinoma the hepatic flexure the colon. No obvious metastatic disease. Electronically Signed: Reynold Barrios MD at 18:42 EDT , Physical Exam Const alert, oriented x3 and no apparent distress Constitutional Narrative: Patient appears his stated age General Appearance: cooperative, well kempt and well developed Orientation / Consciousness: awake, oriented to person, oriented to place and oriented to time HEENT normocephalic, head/scalp atraumatic and moist oral mucous membranes Eyes PERRL, EOMs intact bilaterally and conjunctivae normal Neck supple, no JVD, thyroid normal and no carotid bruits General: trachea midline Resp normal respiratory effort, no retractions, no use of accessory muscles and clear to auscultation bilaterally Auscultation: Negative for rales, rhonchi or wheezes Cardio regular rate, regular rhythm, S1 normal heart sound, S2 normal heart sound, no murmurs, no rub and no gallops GI normal to inspection, nondistended, normoactive bowel sounds, soft to palpation, non-tender and non-distended Extremity no clubbing, cyanosis or edema Skin no rashes or lesions noted General Skin Exam: no breakdown Neuro oriented x3, CN's II-XII intact bilaterally, no focal motor deficits and no sensory deficits noted Sensorium / Orientation: awake and alert Speech: speech normal Psych affect normal Assessment & Plan Assessment/Plan (1) Anemia due to blood loss, acute: PLAN: Plan 1. Acute anemia of blood loss from colon cancer requiring blood transfusion- patient is currently being transfused, CBC will be repeated tomorrow, family will have a conference about medical decisions concerning the patient's colon cancer, patient will have a CT of the abdomen and pelvis today. #2 colon cancer-again patient will have discussions with his family concerning how to proceed with medical management #3 chronic kidney disease stage IV-complicates care, recovery, and prognosis Charges/Coding Visit Charges Inpatient E&M: 53469 Subs Hosp L2
--- NOTE | 2022-01-12 19:38 | CASEMGMT ---
Face to Face with patient for initial transition planning/care coordination assessment. EMMANUEL WHITE introduced self and role at [facility] to pt's who voiced understanding. Pt at procedure and unavailable for assessment. Care providers, pharmacy, and demographics verified. PCP: Lizett Specialists: none [facility] Insurance: [facility] Prescription Benefit: yes LNOK: , Francine Living Arrangements: pt lives with in single story home with 2 steps w/handrail to enter. Pt has been increasingly weak but has been able to ambulate in the home and ride the riding lawnmower to mow the yard. Pt is independent with ADLs but has been less able to assist with household tasks. Pt's performs the majority of household duties. Transportation: neither the pt or his drives. their daughter (in [place]) and granddaughter (in [place]) assist with transportation for appointments, groceries, etc. DME: cane, walker SNF/HH: No previous needs Plan: Per pt's , the plan is for pt to return home. Their son has stated he is able/willing to stay with them and assist if needed. Will continue to monitor and assist with needs as identified. Sam Lackey RN CM
[2022-01-13 03:22] VITALS: BP 137/79; PULSE 70; RESP 16; TEMP 36.7; O2SAT 98
[2022-01-13 03:55] VITALS: PULSE 66
[2022-01-13 06:50] VITALS: PULSE 58
[2022-01-13 06:51] LABS: Absolute Lymphocyte Count 1.17 X10^3/uL (0.83-4.51); Absolute Neutrophil Count 8.6 X10^3/uL (2.0-7.7); Basophil# 0.03 X10^3/uL; Basophil% 0.3 % (0-1); Eosinophil# 0.25 X10^3/uL; Eosinophils% 2.2 % (0-5); Hematocrit 30.3 % (40-54); Hemoglobin 10.1 g/dL (13.0-16.5); Lymphocyte # 1.17 X10^3/ul (0.83-4.51); Lymphocyte % 10.3 % (19-41); Mean Corp Hgb Conc 33.3 g/dL (32-36); Mean Corpuscular Hgb 27.7 pg (27.0-32.0); Mean Platelet Vol. 12.2 fl (6.2-12.0); Monocyte# 1.26 X10^3/uL; Monocyte% 11.1 % (0-10); NRBC Flagged by Analyzer 0 % (0-5); Neutrophil # 8.59 X10^3/uL (2.7-7.7); Neutrophil % 75.7 % (47-70); Platelet Count 131 K/mm3 (150-450); RBC Distribution Width CV 15.6 % (11.6-14.6); RBC Distribution Width SD 47.2 fl (35.1-43.9); Red Blood Count 3.65 M/mm3 (4.6-6.2); White Blood Count 11.4 K/mm3 (4.4-11.0)
[2022-01-13 07:25] VITALS: O2SAT 96
--- NOTE | 2022-01-13 08:11 | PCM.PN.HOSP ---
Subjective Subjective Patient was seen and examined today, CT scan of the abdomen pelvis did not show evidence metastatic disease although it was done without contrast. I talked to the patient briefly this morning, I will need to have a discussion with him and his later today about his medical care plan. Objective Data Objective Data Vital Signs: Vital Signs Temp Pulse Resp BP Pulse Ox O2 Del Method 98.1 F 58 L 16 137/79 H 98 Room Air 01/13/22 03:22 01/13/22 06:50 01/13/22 03:22 01/13/22 03:22 01/13/22 03:22 01/13/22 07:35 Oxygen Delivery Method Room Air Weight: 65.3 kg Body Mass Index (BMI) 23.1 Intake & Output: Intake and Output for Last 24 Hours 01/11/22 01/12/22 01/13/22 23:59 23:59 23:59 Intake Total 4188.33 / 4188.33 Output Total 425 / 425 Balance 3763.33 / 3763.33 Medical Nutrition Assessment Dietitian: Malnutrition Criteria Met Start: 01/12/22 14:50 Freq: Status: Active Protocol: Document 01/12/22 14:50 SLA (Rec: 01/12/22 14:50 SLA [id number]) Nutrition Malnutrition Evidence of Malnutrition Exists Yes Malnutrition (severe): Acute Illness/Injury Evidenced By Suboptimal Energy Intake ( Severe),Weight Loss (Severe) Clinical Problem Acute Disease or Injury Related Malnutrition Etiology severe related to inadequate energy intake of estimated nutritional needs Signs/Symptoms as evidenced by 6.9% wt loss and 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 Recommendation Dietitian Recommendations/Changes As medically able, rec diet as tolerated to Regular No Added Salt As medically able, rec 120 ml ensure enlive 4x/day w/ medpass Lab / Micro Data Result Diagrams: 01/13/22 06:20 01/12/22 02:43 Labs: Laboratory Results - last 24 hr 01/11/22 21:55: Crossmatch See Detail 01/11/22 21:55: Crossmatch See Detail 01/12/22 10:15: Hgb 7.8 L, Hct 24.6 L 01/13/22 06:20: WBC 11.4 H, RBC 3.65 L, Hgb 10.1 L, Hct 30.3 L, MCV 83.0, MCH 27.7, MCHC 33.3 D, RDW Std Deviation 47.2 H, RDW Coeff of [place] 15.6 H, Plt Count 131 L, MPV 12.2 H, Immature Gran % (Auto) 0.400, Neut % (Auto) 75.7 H, Lymph % (Auto) 10.3 L, [place] % (Auto) 11.1 H, Eos % (Auto) 2.2, Baso % (Auto) 0.3, Absolute Neuts (auto) 8.6 H, Absolute Lymphs (auto) 1.17, Nucleated RBC % 0 Radiography Diagnostic Testing: Radiology Impression Abdomen/Pelvis CT 01/12/22 17:23 IMPRESSION: Known colonic carcinoma the hepatic flexure the colon. No obvious metastatic disease. Electronically Signed: Reynold Barrios MD at 18:42 EDT , Physical Exam Narrative General: Alert, Oriented x3, Cooperative, fatigued, pale looking HEENT: Pale conjunctiva atraumatic, PERRLA, EOMI, Normocephalic Oral: Oral mucosa dry. No Gingival or Mucosal Lesions/ Ulcerations Neck: Supple, No JVD, Negative Carotid Bruits Lungs: Air entry diminished in bilateral lung bases. No crepitation/rhonchi Cardiovascular: Sinus rhythm, Normal S1, Normal S2, No murmurs Abdomen: Bowel Sounds Present, Soft, Non Tender, Non-Distended : No renal angle tenderness. No suprapubic tenderness. Extremities: No edema, Capillary Refill Less than 3 Seconds Skin: No rashes, No breakdown Musculoskeletal: No Tenderness to Palpation of Joints or Extremities. Muscle strength 4/5 at major joints of lower extremities Neurological: Cranial nerves II-XII grossly intact, DTR 2+/4, no focal lateralizing signs Psych/Mental Status: Flat affect. Dementia, amnesia Const alert, oriented x3 and no apparent distress Constitutional Narrative: Patient appears his stated age General Appearance: cooperative, well kempt and well developed Orientation / Consciousness: awake, oriented to person, oriented to place and oriented to time HEENT normocephalic and moist oral mucous membranes Eyes PERRL, EOMs intact bilaterally and conjunctivae normal Neck supple, no JVD, thyroid normal and no carotid bruits General: trachea midline Resp normal respiratory effort, no retractions, no use of accessory muscles and clear to auscultation bilaterally Auscultation: Negative for rales, rhonchi or wheezes Cardio regular rate, regular rhythm, S1 normal heart sound, S2 normal heart sound, no murmurs, no rub and no gallops GI normal to inspection, nondistended, normoactive bowel sounds, soft to palpation, non-tender and non-distended Extremity normal to inspection and no clubbing, cyanosis or edema Skin no rashes or lesions noted General Skin Exam: no breakdown Neuro oriented x3, CN's II-XII intact bilaterally, no focal motor deficits and no sensory deficits noted Sensorium / Orientation: awake and alert Speech: speech normal Psych affect normal Assessment & Plan Assessment/Plan (1) Acute GI bleeding: (2) Anemia due to blood loss, acute: PLAN: Plan 1. Acute anemia of blood loss from colon cancer requiring blood transfusion-patient's hemoglobin appears to be stable at 10 at this time #2 colon cancer-again I will discuss medical management with the patient's and the patient today, if he wants a resection of the area, he will need a CT with contrast and he will need to see general surgery. #3 chronic kidney disease stage IV-complicates care, recovery, and prognosis Charges/Coding Visit Charges Inpatient E&M: 36474 Subs Hosp L2
[2022-01-13 09:00] VITALS: BP 118/60; PULSE 63; RESP 18; TEMP 36.6; O2SAT 97
[2022-01-13 10:26] VITALS: BP 105/60; BP 114/58; BP 96/58; PULSE 56; PULSE 58; PULSE 79
--- NOTE | 2022-01-13 14:05 | DCINST_ITS ---
Discharge Instructions Diet Discharge Diet: No restrictions Activity Discharge Activity: Return to Normal Activity Weight Bearing Status: Full weight bearing Follow Up Care Test Results: Test results from this visit will be discussed in further detail at your follow- up appointment, if applicable. Discharge Plan Admission Admit Date/Time: 01/11/22 23:00 Primary Reason for Your Visit: Acute anemia, colon cancer Attending Provider: Loc Dickens Primary Care Provider: Oswaldo Phoenix Consulting Providers: Greg Villar ; Candelaria Mullins ; Andrea Payton ; Smita Sutherland ; Chinyere Calixto ; Kacie Garcia CATERING MANAGER Discharge Orders/Prescriptions Referrals / Follow Up: Oswaldo Phoenix MD [Primary Care Provider] - Disposition Disposition (needs filled in before D/C Order can be placed): Hospice in Home
--- NOTE | 2022-01-13 14:18 | DS.PCM_ITS ---
Providers Date of Admission: 01/11/22 Date of Discharge: 01/13/22 Primary Care Physician: Dr. Oswaldo Phoenix MD Consultations 01/12/22 01:00 Consult: Gastroenterology Routine Consulting Provider: [facility] Reason for Consult: GI Bleed EMERGENT Consult: No Notified: Yes Date Notified: 01/11/22 Time Notified: 11:00 Method of Notification: ED Physician Initiated 01/13/22 10:18 Consult: Hospice / Palliative Care Routine Consulting Provider: [facility] Reason for Consult: colon cancer-establish care EMERGENT Consult: No Notified: Yes Date Notified: 01/13/22 Time Notified: 10:18 Method of Notification: Verbal Reason For Visit: GI BLEED WITH HYPOTENSION, SYNCOPE Diagnosis Discharge Diagnosis (1) Acute GI bleeding: Status: Acute Code(s): K92.2 - Gastrointestinal hemorrhage, unspecified (2) Anemia due to blood loss, acute: Status: Acute Code(s): D62 - Acute posthemorrhagic anemia Plan 1. Acute anemia of blood loss from colon cancer requiring blood transfusion- patient's hemoglobin appears to be stable at 10 at this time #2 colon cancer-again I will discuss medical management with the patient's and the patient today, if he wants a resection of the area, he will need a CT with contrast and he will need to see general surgery. #3 chronic kidney disease stage IV-complicates care, recovery, and prognosis #4 Alzheimer's dementia #5 duodenal ulcer Hospital Course Operations None Procedures Colonoscopy and EGD Summary of Care Provided Minutes Spent on Discharge: 31 Hospital Course: 76-year-old white male was seen in the emergency room at [facility] due to rectal bleeding, according to the patient's family he has had 3 episodes of syncope. One of the episodes was observed by paramedics. Work-up in the emergency room included labs which showed elevated white blood cell count of 13, 000, hemoglobin was 7.8, creatinine was elevated at 2.44, and BUN was 39. Glucose was 160. Gastroenterology was contacted as well as the hospitalist service and the patient was admitted under the hospitalist service. Patient was transfused a total of 4 units of packed red blood cells, he underwent an EGD which showed a small ulcer in the duodenum that was nonbleeding, he also underwent a colonoscopy which showed evidence of colon cancer at hepatic flexure. Discussions were carried out with the patient and the patient's - patient's talked with other family members and it was decided that the patient would not seek treatment for his colon cancer due to his comorbidities which included stage IV kidney disease and Alzheimer's dementia. Family requested hospice services and hospice was contacted and would see the patient as an outpatient. On 01/13/2022, patient was seen and examined: On examination he appeared his stated age, he exhibited pleasant confusion. Vital signs as documented. Skin warm and dry and without overt rashes. Neck without JVD, neck was supple, trachea midline, thyroid was normal. Lungs clear bilaterally, normal air movement was noted. Heart exam notable for regular rhythm, normal sounds and absence of murmurs, rubs or gallops. Abdomen unremarkable and without evidence of organomegaly, masses, or abdominal aortic enlargement. Bowel sounds are present, abdomen is not distended. Extremities nonedematous, no cyanosis was noted, no clubbing was noted. Neuro: Cranial nerves II through XII are grossly intact, no focal motor deficits were noted, sensation to light touch and pinpr ick intact, motor exam 5/5 throughout. Psych: Patient is alert, he is oriented to self and place Patient was discharged on 01/13/2022 in stable condition, hospice will contact the patient and his family and follow-up with them at home. Prognosis overall is poor, I filled out a DNR Comfort Care form for the patient to have at home prior to his discharge. Medical Records Data Medical Nutrition Assessment Dietitian: Malnutrition Criteria Met Start: 01/12/22 14:50 Freq: Status: Active Protocol: Document 01/12/22 14:50 [facility] (Rec: 01/12/22 14:50 [facility] [id number]) Nutrition Malnutrition Evidence of Malnutrition Exists Yes Malnutrition (severe): Acute Illness/Injury Evidenced By Suboptimal Energy Intake ( Severe),Weight Loss (Severe) Clinical Problem Acute Disease or Injury Related Malnutrition Etiology severe related to inadequate energy intake of estimated nutritional needs Signs/Symptoms as evidenced by 6.9% wt loss and 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 Dietitian Recommendations/Changes As medically able, rec diet as tolerated to Regular No Added Salt As medically able, rec 120 ml ensure enlive 4x/day w/ medpass Weight / BMI Weight Weight: 65.3 kg Body Mass Index (BMI) 23.1 ABG / Lab / Microbiology Data Result Diagrams: 01/13/22 06:20 01/12/22 02:43 Laboratory: Laboratory Results - last 24 hr 01/11/22 21:55: Crossmatch See Detail 01/13/22 06:20: WBC 11.4 H, RBC 3.65 L, Hgb 10.1 L, Hct 30.3 L, MCV 83.0, MCH 27.7, MCHC 33.3 D, RDW Std Deviation 47.2 H, RDW Coeff of [place] 15.6 H, Plt Count 131 L, MPV 12.2 H, Immature Gran % (Auto) 0.400, Neut % (Auto) 75.7 H, Lymph % (Auto) 10.3 L, [place] % (Auto) 11.1 H, Eos % (Auto) 2.2, Baso % (Auto) 0.3, Absolute Neuts (auto) 8.6 H, Absolute Lymphs (auto) 1.17, Nucleated RBC % 0 Radiography Diagnostic Testing: Radiology Impression Abdomen/Pelvis CT 01/12/22 17:23 IMPRESSION: Known colonic carcinoma the hepatic flexure the colon. No obvious metastatic disease. Electronically Signed: Reynold Barrios MD at 18:42 EDT , D/C Instructions Discharge Diet: No restrictions Weight Bearing Status: Full weight bearing Meaningful Use Info Meaningful Use Diagnoses (Choose all that apply): None applicable Discharge Plan Admission Admit Date/Time: 01/11/22 23:00 Primary Reason for Your Visit: Acute anemia, colon cancer Attending Provider: Loc Dickens Primary Care Provider: Oswaldo Phoenix Consulting Providers: Greg Villar ; Candelaria Mullins ; Andrea Payton ; Smita Sutherland ; Chinyere Calixto ; Kacie Garcia OIL HEATER INSTALLER Discharge Orders/Prescriptions Referrals / Follow Up: Oswaldo Phoenix MD [Primary Care Provider] - Disposition Disposition (needs filled in before D/C Order can be placed): Hospice in Home Charges/Coding Visit Charges Inpatient E&M: 39827 Disch Hosp
== END 2022-01-13 15:19 | disposition hospice, home (50) | DRG 375 ==
LOC: ED 22:39 → PCU 23:27
PROVIDERS: Internal Medicine Gastroenterology; Admitting Provider Internal Medicine; Emergency Provider Emergency Medicine; PCP Family Medicine; Visit Provider Internal Medicine
PROC: 0DJD8ZZ Inspection of Lower Intestinal Tract, Via Natural or Artificial Opening Endoscopic (ICD-10-PCS; CPT 45378; principal; 2022-01-12 13:30)
DX: C18.3 Malignant neoplasm of hepatic flexure (principal); D62 Acute posthemorrhagic anemia; N18.4 Chronic kidney disease, stage 4 (severe); F02.80 Dementia in other diseases classified elsewhere, unspecified severity, without behavioral disturbance, psychotic disturbance, mood disturbance, and anxiety; G30.9 Alzheimer's disease, unspecified; I07.1 Rheumatic tricuspid insufficiency; K44.9 Diaphragmatic hernia without obstruction or gangrene; D63.1 Anemia in chronic kidney disease; K57.30 Diverticulosis of large intestine without perforation or abscess without bleeding; I95.1 Orthostatic hypotension; D63.0 Anemia in neoplastic disease; K26.9 Duodenal ulcer, unspecified as acute or chronic, without hemorrhage or perforation; Z66 Do not resuscitate; Z87.891 Personal history of nicotine dependence
CPT/HCPCS: 36415; 74176; 80048; 80053; 83605; 83735; 84100; 84443; 85014; 85018; 85025; 85610; 85730; 86850; 86900; 86901; 86920; 88305; 88341; 88342; 93005; 97162; 97165; 97802; 99251; 99285; J7030; J7040; J7120; P9016; A4216; A4648; G0463; J2405